=== PATIENT | male | born 1990 | race Caucasian/White ===

== ENCOUNTER → 2016-06-09 | Outpatient (CLI) | payer OTHER ==
[~2016-06-09] MED LIST: ACET-1257 PO; CYCL10TA6 PO; LVQ750 PO; ONDA4TAB10 SL; PRD20 PO; PRVHFAIN INH; TRAM-10 PO
== END | disposition home or self-care (01) ==
LOC: C.LAB 01:00
DX: Z04.8 Encounter for examination and observation for other specified reasons (principal)

== ENCOUNTER 2016-07-18 09:25 | Emergency (ER) | payer BC, OTHER ==
[~2016-07-18] VITALS: Ht 177.8 cm; Wt 100.5 kg
[2016-07-18 09:46] VITALS: TEMP 36.9; Ht 177.8 cm; Wt 100.5 kg
--- NOTE | 2016-07-18 12:01 | DIAGNOSTIC IMAGING REPORT ---
ULTRASOUND OF THE BLADDER CLINICAL HISTORY: Hematuria. COMPARISON STUDY: Abdominal radiograph dated 02/03/2012. TECHNIQUE: Real-time, grayscale, and color flow sonography of the bladder is performed. Images are reviewed in the transverse and longitudinal planes. FINDINGS: The partially distended bladder is normal in appearance. No intraluminal debris is identified. Both ureteral jets were seen. No free fluid is identified in the pelvis. The prostate gland is normal as imaged. IMPRESSION: Unremarkable sonographic assessment of the bladder. Electronically signed by: Jorge Barbosa M.D. 07/18/2016 12:00 PM Dictated Date/Time: 07/18/2016 11:58 AM
--- NOTE | 2016-07-18 12:10 | DIAGNOSTIC IMAGING REPORT ---
TESTICULAR ULTRASOUND CLINICAL HISTORY: Testicular pain status post trauma COMPARISON STUDY: No previous studies for comparison. FINDINGS: The right testis measures 4.8 x 2.2 x 3.4 cm. The left testis measures 4.7 x 2.3 x 2.9 cm. No intratesticular masses are visualized. There is no evidence of testicular torsion. No epididymal abnormalities are evident. IMPRESSION: Normal study Electronically signed by: Valente Chavira M.D. 07/18/2016 12:09 PM Dictated Date/Time: 07/18/2016 12:04 PM
[2016-07-18 12:42] LABS: URINE APPEARANCE CLEAR (CLEAR); URINE BILIRUBIN NEG (NEG); URINE COLOR YELLOW; URINE EPITHELIAL CELL AUTO 0-5 /lpf (0-5); URINE NITRITE NEG (NEG); URINE SPECIFIC GRAVITY 1.002 (1.000-1.030); UROBILINOGEN NEG (NEG)
[2016-07-18 12:44] LABS: MANUAL MICROSCOPIC REQUIRED? NO; REVIEW REQ? NO
--- NOTE | 2016-07-18 14:17 | DIAGNOSTIC IMAGING REPORT ---
RETROGRADE URETHROGRAM CLINICAL HISTORY: Penile trauma. COMPARISON STUDY: None. FLUOROSCOPY TIME: 1 minute. PROCEDURE AND FINDINGS: A retrograde urethrogram was performed by Dr. Slaughter. A small Martini catheter was inserted into the urethral meatus and a small balloon was inflated. 45 cc of Optiray 300 was then injected and fluoroscopic images were obtained in the lateral oblique projection. I fluoroscopic images were obtained. Mobile filling defects within the urethra represent gas. No contrast extravasation is identified. There was no irregularity of the urethral wall. No stricture was identified. Narrowing of the posterior urethra was noted which likely reflects the junction of the anterior and posterior urethra. This is likely within normal limits. The prostatic urethra is suboptimally assessed in this patient. IMPRESSION: 1. No contrast extravasation or urethral stricture identified. 2. Smooth narrowing at the junction of the anterior and posterior urethra which is likely within normal limits. Prostatic urethra suboptimally assessed on this exam. Electronically signed by: Artemio Martinez M.D. 07/18/2016 2:16 PM Dictated Date/Time: 07/18/2016 2:12 PM
[2016-07-18 14:41] VITALS: BP 112/67; PULSE 76; O2SAT 97
--- NOTE | 2016-07-18 17:20 | EMERGENCY ROOM VISIT NOTE ---
History Report prepared by Malia: Franck Rodriguez Under the Supervision of: Dr. Connor Donnelly D.O. First contact with patient: 10:26 Chief Complaint: URINARY SYMPTOMS Stated Complaint: HAVING TROUBLE URINATING/ BLOOD IN URINE Nursing Triage Summary: Triage note: Pt reports 6 days ago while cutting a limb struck his penis. Pt reports since that time he has had difficulty urinating and blood in urine. History of Present Illness The patient is a 25 year old male who presents to the Emergency Room with complaints of acute hematuria that started today. The patient was struck in the groin by a tree limb of approximately 2 inch diameter when he was sawing logs six days ago. He had a small amount of pain and swelling of the penis after the accident which resolved two days ago. He has also had trouble urinating since the incident, as his urine was coming out in dribbles. He is not experiencing pain with urination. Today the patient noticed some blood in his urine which prompted today's visit. The patient denies any previous medical problems. Patient denies headache, change in vision, fevers, chest pain, shortness of breath, nausea, vomiting, diarrhea, and melena. Source of History: patient Onset: today Position: other () Quality: other (hematuria) Timing: other (acute) Associated Symptoms: No SOB, No chest pain, No diarrhea, No fevers, No headache, No melena, No nausea, No vomiting Review of Systems See HPI for pertinent positives & negatives. A total of 10 systems reviewed and were otherwise negative. Past Medical & Surgical Medical Problems: (1) Bronchitis (2) Headache (3) Stomach problems Family History Cancer Social History Smoking Status: Current Every Day Smoker Alcohol Use: none Marital Status: single Occupation Status: unemployed Current/Historical Medications No Active Prescriptions or Reported Meds Allergies Coded Allergies: No Known Allergies (Unverified , 07/18/16) Physical Exam Vital Signs Date Time Temp Pulse Resp B/P Pulse Ox O2 Delivery O2 Flow Rate FiO2 07/18/16 14:41 76 16 112/67 97 07/18/16 13:11 76 16 112/67 97 Room Air 07/18/16 09:46 36.9 86 18 137/79 95 Room Air Physical Exam GENERAL: Sitting up in bed, alert, well appearing, well nourished, no distress, non-toxic EYE EXAM: normal conjunctiva. OROPHARYNX: no exudate, no erythema, lips, buccal mucosa, and tongue normal and mucous membranes are moist NECK: supple, no nuchal rigidity, no adenopathy, non-tender LUNGS: Clear to auscultation. Normal chest wall mechanics HEART: no murmurs, S1 normal and S2 normal ABDOMEN: abdomen soft, non-tender, normo-active bowel sounds, no masses, no rebound or guarding. : Normal external circumcised male genitalia, nontender testicles, no bruising , no blood in the urethral meatus. No masses or hernias appreciated. BACK: Back is symmetrical on inspection and there is no deformity, no midline tenderness, no CVA tenderness. SKIN: no rashes and no bruising UPPER EXTREMITIES: upper extremities are grossly normal. LOWER EXTREMITIES: No pitting edema. NEURO EXAM: Normal sensorium, cranial nerves II-XII grossly intact, normal speech, no gross weakness of arms, no gross weakness of legs. Gross sensation intact. Medical Decision & Procedures ER Provider Diagnostic Interpretation: Radiology results have been interpreted by the radiologist and reviewed by me. ULTRASOUND OF THE BLADDER CLINICAL HISTORY: Hematuria. COMPARISON STUDY: Abdominal radiograph dated 02/03/2012. TECHNIQUE: Real-time, grayscale, and color flow sonography of the bladder is performed. Images are reviewed in the transverse and longitudinal planes. FINDINGS: The partially distended bladder is normal n appearance. No intraluminal debris is identified. Both ureteral jets were seen. No free fluid is identified in the pelvis. The prostate gland is normal as imaged. IMPRESSION: Unremarkable sonographic assessment of the bladder. Electronically signed by: Jorge Barbosa M.D. 07/18/2016 12:00 PM Dictated Date/Time: 07/18/2016 11:58 AM TESTICULAR ULTRASOUND CLINICAL HISTORY: Testicular pain status post trauma COMPARISON STUDY: No previous studies for comparison. FINDINGS: The right testis measures 4.8 x 2.2 x 3.4 cm. The left testis measures 4.7 x 2.3 x 2.9 cm. No intratesticular masses are visualized. There is no evidence of testicular torsion. No epididymal abnormalities are evident. IMPRESSION: Normal study Electronically signed by: Valente Chavira M.D. 07/18/2016 12:09 PM Dictated Date/Time: 07/18/2016 12:04 PM RETROGRADE URETHROGRAM CLINICAL HISTORY: Penile trauma. COMPARISON STUDY: None. FLUOROSCOPY TIME: 1 minute. PROCEDURE AND FINDINGS: A retrograde urethrogram was performed by Dr. Slaughter. A small Martini catheter was inserted into the urethral meatus and a small balloon was inflated. 45 cc of Optiray 300 was then injected and fluoroscopic images were obtained in the lateral oblique projection. I fluoroscopic images were obtained. Mobile filling defects within the urethra represent gas. No contrast extravasation is identified. There was no irregularity of the urethral wall. No stricture was identified. Narrowing of the posterior urethra was noted which likely reflects the junction of the anterior and posterior urethra. This is likely within normal limits. The prostatic urethra is suboptimally assessed in this patient. IMPRESSION: 1. No contrast extravasation or urethral stricture identified. 2. Smooth narrowing at the junction of the anterior and posterior urethra which is likely within normal limits. Prostatic urethra suboptimally assessed on this exam. Electronically signed by: Artemio Martinez M.D. 07/18/2016 2:16 PM Dictated Date/Time: 07/18/2016 2:12 PM Laboratory Results Test 07/18/16 12:20 Urine Color YELLOW Urine Appearance CLEAR (CLEAR) Urine pH 5.0 (4.5-7.5) Urine Specific [place] 1.002 (1.000-1.030) Urine Protein NEG (NEG) Urine Glucose (UA) NEG (NEG) Urine Ketones NEG (NEG) Urine Occult Blood NEG (NEG) Urine Nitrite NEG (NEG) Urine Bilirubin NEG (NEG) Urine Urobilinogen NEG (NEG) Urine Leukocyte Esterase NEG (NEG) Urine WBC (Auto) 1-5 /hpf (0-5) Urine RBC (Auto) 0-4 /hpf (0-4) Urine Hyaline Casts (Auto) 0 /lpf (0-5) Urine Epithelial Cells (Auto) 0-5 /lpf (0-5) Urine Bacteria (Auto) NEG (NEG) Laboratory results per my review. ED Course ED COURSE: Vital signs were reviewed and were normal. The patients medical record was reviewed The above diagnostic studies were performed and reviewed. ED treatments and interventions as stated above. 1028: The patient was evaluated in room A12a. A complete history and physical examination was performed. 1049: Discussed the case with Dr. Slaughter's LINE REPAIRER (Urology). Dr. Slaughter will be in to see the patient. 1111: Spoke with Dr. Martinez, Radiologist, who will perform a fluoro if Urology injects them. 1115: Dr. Slaughter agreed with performing a RUG. 1350: The PUG is being done now. 1400: The patient asked for a note for court. 1420: Dr. Slaughter finished the PUG. He would like the patient to follow up in three weeks. 1425: Upon reevaluation, the patient is ready for discharge.I discussed my findings with the patient and he understands and agrees with the treatment plan. Based on the patients age, coexisting illnesses, exam and lab findings the decision to treat as an outpatient was made. The patient remained stable while under my care. The patient appeared well at the time of discharge. Medical Decision Differential diagnoses includes but is not limited to gastritis, peptic ulcer disease, GERD, gallbladder disease, pancreatitis, small bowel obstruction, acute coronary syndrome, pericarditis, ischemic bowel, irritable bowel disease, irritable bowel syndrome, appendicitis, diverticulitis, malignancy, hernia, urinary tract infection, torsion, , perforation, trauma, infectious. Patient is a 25-year-old male who was hit in the penis 5 days ago. Patient has been having pain since then. No obvious deformity or signs of trauma. Ultrasound of the bladder and testicles were unremarkable. A rug was performed by urology and was negative as well. UA was negative. Patient was evaluated by urology at bedside and agreed with his current treatment plan. He was discharged to follow-up with them in 2-3 weeks. Again his abdomen is completely benign and he denies any trauma consequently I did not image his belly. His story is not consistent with ureteral tear but the rug was performed for completeness. Post void residual was 40 consequently he is not retaining. I felt it was reasonable to discharge him and have him follow-up with urology as an outpatient. Discussed with Pt concerning signs and symptoms to watch out for. Pt was instructed to follow up with their PCP and discussed with the patient their option to return to the ED at anytime for persistent or worsening symptoms. The appropriate anticipatory guidance and out-patient management, including indications for return to the emergency department, were explained at length to the patient and understood. Impression Primary Impression: Penile trauma Additional Impression: Hematuria Scribe Attestation The scribe's documentation has been prepared under my direction and personally reviewed by me in its entirety. I confirm that the note above accurately reflects all work, treatment, procedures, and medical decision making performed by me. Departure Information Dispostion Home / Self-Care Prescriptions No Active Prescriptions or Reported Meds Referrals No Doctor, Assigned (PCP) Forms HOME CARE DOCUMENTATION FORM, IMPORTANT VISIT INFORMATION Patient Instructions ED Hematuria, [facility] Additional Instructions Please follow up with your primary care doctor with in the next 24 hours. Any worsening of your symptoms, please return to the ED immediately. This includes persistent blood in urine, worsening pain, inability urinate, or worsening lower abdominal pain. Please follow up with urology within the next 2-3 weeks. Problem Qualifiers Primary Impression: Penile trauma Encounter type: initial encounter Qualified Codes: S39.94XA - Unspecified injury of external genitals, initial encounter
--- NOTE | 2016-07-18 22:26 | GENITOURINARY CONSULTATION ---
DATE OF CONSULTATION: 07/18/2016 EMERGENCY ROOM CONSULT REASON FOR THE CONSULT: Gross hematuria and history of urethral trauma. HISTORY OF PRESENTATION: The patient is a 25-year-old male who 6 days ago was hit across his thighs including the penis by a tree limb. At that time, he felt some pain but did not stop working and he continued to work for the next 5 days but did have some pain in his penis that has gotten less and less. There is a little bit of redness and swelling but not significant redness. He denies any abdominal or flank trauma. Initially, he was able to void and there has been no blood, but he did notice some decrease in the flow and he has some hesitancy. Today, he noticed some pink in the toilet when he voided and came to the Emergency Room because of this. Again, the patient is 25 years old and in relatively good health, has no known drug allergies. He denies any trauma to his abdomen or pain in his abdomen or his flank. He denies any serious penile pain at this point or significant discoloration or swelling. He is relatively otherwise healthy 25-year-old male. A bladder scan was done in the Emergency Room and he had less than 50 mL in his bladder after voiding. Of note, he said he fell on his back and had blood in his urine previously in October of 2015. He also had testicular sonogram during this visit that was completely normal. PHYSICAL EXAMINATION: GENERAL: The patient does not appear to be in any distress. HEENT: Unremarkable. LUNGS: Clear. ABDOMEN: He had no flank pain to percussion. No abdominal pain or suprapubic discomfort. His abdomen was soft, nontender. GENITOURINARY: He had a normal appearing circumcised male phallus. There was no discoloration. There was mild thickening of the mid penile urethra. Rectal exam was done and there did not appear to be high-riding prostate, although the prostate was quite small. Again, testes were normal without any tenderness or mass. No epididymal swelling. EXTREMITIES: Unremarkable. NEUROLOGIC: He is alert and oriented without any focal sensory deficit. A retrograde urethrogram was done in conjunction with Dr. Martinez. I placed the catheter 1 cm into the urethra, 14-[place] catheter, inflated it with 2 mL of saline just inside the tip of the urethra and injected contrast. Dr. Martinez and I both agree that we did not see any extravasation. There was not any obvious trauma to the urethra. It appeared uniform and symmetric and normal and did not appear constricted at any point down to the prostatic urethra. At the end of the procedure, the patient went back to the Emergency Room and discussed the options with his father including placing a Martini catheter, but given that patient has been voiding, I do not think this is warranted. We did discuss the fact that if he has hematuria from other causes, that a CAT scan and a cystoscopy would be in order. I suggested that he return in several weeks, at which point we could get Uroflow and also do a urinalysis. If in the interim he has problems, he is to return. I felt that placing a Martini catheter would not be of great benefit as it does not appear that he has extravasation. He probably has some damage to the spongiosum and he may get a stricture but whatever he gets, I do not think will be affected by the catheter and I am not sure that a 25-year-old is going to be more comfortable with a Martini catheter in place. If he develops gross hematuria, further workups would be warranted but there is no evidence of trauma to his flank or his abdomen. They are both completely nontender and he has no flank or abdominal pain. I gave the patient and father my card and asked them to follow up in 3 weeks or sooner if there are problems.
== END 2016-07-18 14:43 | disposition home or self-care (01) ==
LOC: C.EDB 09:26 → C.EDA 14:43
DX: S30.21XA Contusion of penis, initial encounter (principal); W22.8XXA Striking against or struck by other objects, initial encounter; R31.9 Hematuria, unspecified; F17.200 Nicotine dependence, unspecified, uncomplicated; Z80.9 Family history of malignant neoplasm, unspecified

== ENCOUNTER 2016-08-21 09:43 | Emergency (ER) | payer BC ==
[~2016-08-21] VITALS: Ht 177.8 cm; Wt 102.2 kg
[2016-08-21 10:00] VITALS: TEMP 36.8; Ht 177.8 cm; Wt 102.2 kg
[2016-08-21] MEDS ORDERED: CYCL10TA6 PO (10:17)
[2016-08-21] MEDS ORDERED: ACET-1257 PO (10:17)
[2016-08-21] MEDS ORDERED: ACETAMINOPHEN 500 MG TAB PO STA (10:35)
--- NOTE | 2016-08-21 11:06 | DIAGNOSTIC IMAGING REPORT ---
HEAD CT NONCONTRAST CT DOSE: 614.27 mGy.cm HISTORY: Head injury. Headache. TECHNIQUE: Multiaxial CT images of the head were performed without the use of intravenous contrast. Automated exposure control was utilized for this study. Comparison: None. Findings: The paranasal sinuses and mastoid air cells are clear. The calvarium and skull base are intact. The ventricles and sulci are within normal limits. There is no mass, hematoma, midline shift, or acute infarct. Impression: No acute intracranial abnormality. Electronically signed by: Bret Khan M.D. 08/21/2016 11:03 AM Dictated Date/Time: 08/21/2016 11:00 AM
[2016-08-21] MEDS ORDERED: TRAM-10 PO (11:32)
[2016-08-21] MEDS ORDERED: ONDA4TAB10 SL (11:32)
[2016-08-21 11:40] VITALS: BP 117/60; PULSE 84; O2SAT 96
--- NOTE | 2016-08-21 16:19 | EMERGENCY ROOM VISIT NOTE ---
History First contact with patient: 10:22 Chief Complaint: HEAD INJURY (MINOR) Stated Complaint: BRAMBILA, VISION BLURRY, TIRED/FATIGUED History of Present Illness The patient is a 25 year old male who presents to the Emergency Room with complaints of a head injury while under a metal table last night. As he was attempting to crawl out from under the table, he stood up and hit his head. There was a loss of consciousness for approximately 15 seconds. The patient does report mildly worsening pain. He denies any nausea, blurred vision, discoordination, epistaxis, blurred vision or light sensitivity. He also denies any significant nausea. He currently rates his headache a 2 out of 10. He denies any pain extending into the neck or back. Review of Systems 10 system review was performed and was negative except for pertinent positives and negatives as indicated in history of present illness Past Medical/Surgical History Medical Problems: (1) Bronchitis (2) Headache (3) Stomach problems Family History Cancer FH: hypertension Social History Smoking Status: Current Every Day Smoker Alcohol Use: none Marital Status: single Occupation Status: unemployed Current/Historical Medications Scheduled Acetaminophen (Tylenol Extra Strength), 2 TABS PO UD Ondasetron Odt (Zofran Odt), 4 MG SL Q6H Scheduled PRN Cyclobenzaprine Hcl (Flexeril), 10 MG PO TID PRN for Muscle Spasms Tramadol (Ultram), 1-2 TAB PO Q4H PRN for Pain Allergies Coded Allergies: No Known Allergies (Unverified , 08/21/16) Physical Exam Vital Signs Date Time Temp Pulse Resp B/P Pulse Ox O2 Delivery O2 Flow Rate FiO2 08/21/16 11:40 84 117/60 96 08/21/16 10:00 36.8 82 20 130/81 98 Room Air Pain Rating (0-10): 2.0 Physical Exam CONSTITUTIONAL: Healthy and well nourished. Alert and oriented X 3 with positive affect. GCS 15. The patient does not appear in any acute distress. HEENT: Normocephalic, atraumatic. Pupils equal, round and reactive. No scalp lacerations or hematoma. No epistaxis, subconjunctival hemorrhage, hemotympanum , raccoon's eyes or Good sign. NECK: Full active range of motion without discomfort. RESPIRATORY: Clear to auscultation bilaterally with no wheezing, crackles, rhonchi or stridor. CARDIOVASCULAR: Regular rate and rhythm with no murmurs, rubs or gallops. MUSCULOSKELETAL: Full range of motion of all joints without discomfort. INTEGUMENTARY: No rash or other significant dermatologic conditions noted. NEUROLOGIC: Cranial nerves II-XII grossly intact. No focal neurologic deficits noted. Normal finger to nose test. Negative pronator drift. No ataxia with ambulation. Medical Decision & Procedures ER Provider Diagnostic Interpretation: My interpretation of a noncontrast head CT does not show any acute fracture or intracranial bleed. Radiologist report is as follows: HEAD CT NONCONTRAST CT DOSE: 614.27 mGy.cm HISTORY: Head injury. Headache. TECHNIQUE: Multiaxial CT images of the head were performed without the use of intravenous contrast. Automated exposure control was utilized for this study. Comparison: None. Findings: The paranasal sinuses and mastoid air cells are clear. The calvarium and skull base are intact. The ventricles and sulci are within normal limits. There is no mass, hematoma, midline shift, or acute infarct. Impression: No acute intracranial abnormality. ED Course Patient history and physical exam were performed. Nurse's notes were reviewed. Vital signs were reviewed and normal. The patient refused any analgesics while in the emergency department. Noncontrast CT of the head was normal. The patient was advised that his symptoms are consistent with a concussion. A concussion handout was provided. The patient was instructed to limit activities until symptoms completely resolved. He may alternate ibuprofen and Tylenol as needed for pain. The patient refused any stronger analgesics or antiemetics, was happy with plan of care, and rated his headache a 4 out of 10 at the time of discharge. Impression Primary Impression: Concussion Departure Information Dispostion Home / Self-Care Condition GOOD Prescriptions Ondasetron Odt (ZOFRAN ODT) 4 Mg Tab 4 MG SL Q6H for Nausea, #10 TAB Prov: Kenny Canela PA 08/21/16 Tramadol (Ultram) 50 Mg Tab 1-2 TAB PO Q4H Y for Pain, #30 TAB For Initial Treatment Prov: Kenny Canela PA 08/21/16 Forms HOME CARE DOCUMENTATION FORM, IMPORTANT VISIT INFORMATION Patient Instructions Concussion, [facility] Additional Instructions Read concussion handout. Rest and avoid strenuous activities until all symptoms completely resolved. Ibuprofen 800 mg and/or Tylenol 1000 mg every 8 hours. You may also alternate these medications for more effective pain relief: Ibuprofen --4 HRS--> Tylenol --4 HRS--> ibuprofen --4 HRS--> Tylenol .... Ultram if needed for worse pain. Zofran ODT if needed for nausea. Follow-up with your family doctor as needed for further concussion management. Return to the emergency department for any significantly worsening conditions. Problem Qualifiers Primary Impression: Concussion Encounter type: initial encounter Loss of consciousness presence/duration: with LOC of 30 min or less Qualified Codes: S06.0X1A - Concussion with loss of consciousness of 30 minutes or less, initial encounter
== END 2016-08-21 11:41 | disposition home or self-care (01) ==
LOC: C.EDB 09:45
DX: S06.0X9A Concussion with loss of consciousness of unspecified duration, initial encounter (principal); S09.90XA Unspecified injury of head, initial encounter; W22.8XXA Striking against or struck by other objects, initial encounter; F17.200 Nicotine dependence, unspecified, uncomplicated; Z87.19 Personal history of other diseases of the digestive system; Z80.9 Family history of malignant neoplasm, unspecified; Z82.49 Family history of ischemic heart disease and other diseases of the circulatory system

== ENCOUNTER 2017-01-29 09:00 | Inpatient (IN) | payer BC ==
[~2017-01-29] VITALS: Ht 177.8 cm; Wt 93.9 kg
[2017-01-29] VITALS (7 sets, daily range): BP systolic 121–156; BP diastolic 65–81; PULSE 91–103; TEMP 36.2–37.2; O2SAT 94–98; Ht 177.8 cm; Wt 93.9 kg
[~2017-01-29 09:00] MED LIST changes: -LVQ750 PO; -PRD20 PO; -PRVHFAIN INH
[2017-01-29] MEDS ORDERED: SODIUM CHLORIDE 0.9% 1000ML 1,000 ML IV STA (09:19)
[2017-01-29] MEDS ORDERED: ACETAMINOPHEN 500 MG TAB PO STA (09:19)
--- NOTE | 2017-01-29 09:25 | EMERGENCY ROOM VISIT NOTE ---
History Report prepared by Malia: Sosa Monge Under the Supervision of: Dr. Jorge Cisneros M.D. First contact with patient: 09:17 Chief Complaint: FLU LIKE SX Stated Complaint: COUGHING,HEADACHE,TROUBLE BREATHING,SWEATY History of Present Illness The patient is a 26 year old male who presents to the Emergency Room with complaints of constant flu-like symptoms beginning 3 days ago. The patient reports having nausea, vomiting, a headache, cough, diarrhea, and a fever. The patient reports that he has had dark green mucous and blood in his productive cough. He states that he has been congested and that he woke up last night feeling short of breath, and that he was slightly delirious. He denies being in contact with anyone who has been sick with these symptoms. The patient denies a history of asthma and pneumonia. The ambulance was summoned to his house this morning as he was hard to arouse. He did wake up though and was alert and oriented for the paramedics. He agreed to come to the hospital for evaluation rather than undergo ambulance transport to the ED. Source of History: patient Onset: 3 days ago Position: other (global) Quality: other (flu-like symptoms ) Timing: constant Associated Symptoms: + fevers, + headache, + cough, + SOB, + nausea, + vomiting, + diarrhea Review of Systems See HPI for pertinent positives & negatives. A total of 10 systems reviewed and were otherwise negative. Past Medical & Surgical Medical Problems: (1) Bronchitis (2) fever cough possibel pna (3) Headache (4) Stomach problems Family History Cancer FH: hypertension Social History Smoking Status: Former Smoker Alcohol Use: none Marital Status: single Occupation Status: unemployed Current/Historical Medications No Active Prescriptions or Reported Meds Allergies Coded Allergies: No Known Allergies (Unverified , 08/21/16) Physical Exam Vital Signs Date Time Temp Pulse Resp B/P (MAP) Pulse Ox O2 Delivery O2 Flow Rate FiO2 01/29/17 12:07 117 01/29/17 11:25 37.3 116 20 110/70 92 Nasal Cannula 2.0 01/29/17 10:17 90 Nasal Cannula 2.0 01/29/17 10:17 127 01/29/17 10:13 37.9 127 20 124/72 87 Room Air 01/29/17 09:05 37.1 117 20 123/79 Room Air Physical Exam GENERAL: Patient is in no acute distress. HEENT: No acute trauma, normocephalic atraumatic, mucous membranes moist, moderate nasal congestion, no scleral icterus. No throat erythema or exudate. NECK: No stridor, no adenopathy, no meningismus, trachea is midline. LUNGS: Moist cough noted. Scattered wheezing, breath sounds are equal. No respiratory distress. HEART: Tachycardic. No murmurs. Normal rhythm. ABDOMEN: Soft, nontender, bowel sounds positive, no hernias, no peritonitis. EXTREMITIES: No cyanosis or edema, full range of motion of all the joints without pain or difficulty, no signs for acute trauma. NEUROLOGIC: Oriented x 3, no acute motor or sensory deficits, no focal weakness. SKIN: No rash, no jaundice, no diaphoresis. Medical Decision & Procedures ER Provider Diagnostic Interpretation: X-ray results as stated below per interpretation by me and the radiologist: CHEST ONE VIEW PORTABLE CLINICAL HISTORY: Respiratory distress. Dyspnea. COMPARISON STUDY: Chest radiograph February 03, 2012. FINDINGS: Lung volumes are at the lower limits of normal. There is no consolidation to suggest pneumonia. No pneumothorax or pleural effusion is present. Cardiomediastinal silhouette is normal. Pulmonary vascularity is normal. IMPRESSION: No acute cardiopulmonary findings. Electronically signed by: Artemio Martinez M.D. 01/29/2017 9:47 AM Dictated Date/Time: 01/29/2017 9:46 AM Laboratory Results 01/29/17 09:43 Red Blood Count 4.56, Mean Corpuscular Volume 91.0, Mean Corpuscular Hemoglobin 30.7, Mean Corpuscular Hemoglobin Concent 33.7, Mean Platelet Volume 9.0, Neutrophils (%) (Auto) 85.3, Lymphocytes (%) (Auto) 5.8, Monocytes (%) (Auto) 7.9, Eosinophils (%) (Auto) 0.7, Basophils (%) (Auto) 0.1, Neutrophils # (Auto) 11.72, Lymphocytes # (Auto) 0.79, Monocytes # (Auto) 1.08, Eosinophils # (Auto) 0.10, Basophils # (Auto) 0.01 01/29/17 09:43 Test 01/29/17 09:35 01/29/17 09:43 01/29/17 10:29 01/29/17 11:55 Influenza Type A Antigen Neg for Influ A (NEG) Influenza Type B Antigen Neg for Influ B (NEG) White Blood Count 13.73 K/uL (4.8-10.8) Red Blood Count 4.56 M/uL (4.7-6.1) Hemoglobin 14.0 g/dL (14.0-18.0) Hematocrit 41.5 % (42-52) Mean Corpuscular Volume 91.0 fL (80-100) Mean Corpuscular Hemoglobin 30.7 pg (25-34) Mean Corpuscular Hemoglobin Concent 33.7 g/dl (32-36) Platelet Count 260 K/uL (130-400) Mean Platelet Volume 9.0 fL (7.4-10.4) Neutrophils (%) (Auto) 85.3 % Lymphocytes (%) (Auto) 5.8 % Monocytes (%) (Auto) 7.9 % Eosinophils (%) (Auto) 0.7 % Basophils (%) (Auto) 0.1 % Neutrophils # (Auto) 11.72 K/uL (1.4-6.5) Lymphocytes # (Auto) 0.79 K/uL (1.2-3.4) Monocytes # (Auto) 1.08 K/uL (0.11-0.59) Eosinophils # (Auto) 0.10 K/uL (0-0.5) Basophils # (Auto) 0.01 K/uL (0-0.2) RDW Standard Deviation 40.0 fL (36.4-46.3) RDW Coefficient of Variation 12.0 % (11.5-14.5) Immature Granulocyte % (Auto) 0.2 % Immature Granulocyte # (Auto) 0.03 K/uL (0.00-0.02) Anion Gap 3.0 mmol/L (3-11) Est Creatinine Clear Calc Drug Dose 150.5 ml/min Estimated GFR () 138.7 Estimated GFR (Non- 119.7 BUN/Creatinine Ratio 7.1 (10-20) Calcium Level 8.9 mg/dl (8.5-10.1) Bedside Lactic Acid Venous 1.17 mmol/L (0.90-1.70) Creatine Kinase MB Ratio (0-3.0) Test 01/29/17 12:24 Laboratory results reviewed by me. Medications Administered Medications (Trade) Dose Ordered Sig/Tj Route Start Time Stop Time Status Last Admin Dose Admin Sodium Chloride 1,000 ml @ 999 mls/hr Q1H1M STAT IV 01/29/17 09:19 01/29/17 10:19 DC 01/29/17 09:38 999 MLS/HR Acetaminophen (Tylenol Tab) 1,000 mg NOW STAT PO 01/29/17 09:19 01/29/17 09:24 DC 01/29/17 09:38 1,000 MG Albuterol (Ventolin Hfa Inhaler) 3 puffs NOW ONCE INH 01/29/17 09:30 01/29/17 09:31 DC 01/29/17 09:38 3 PUFFS Ibuprofen (Motrin Tab) 600 mg NOW STAT PO 01/29/17 10:14 01/29/17 10:15 DC 01/29/17 10:20 600 MG Methylprednisolone Sodium Succinate (Solu-Medrol IV) 80 mg NOW STAT IV 01/29/17 10:23 01/29/17 10:24 DC 01/29/17 10:33 80 MG Ceftriaxone Sodium (Rocephin Inj) 1 gm NOW STAT IV 01/29/17 10:23 01/29/17 10:24 DC 01/29/17 10:33 1 GM ED Course 0912: The patient was evaluated in room B4. A complete history and physical exam was performed. 0919: Ordered Tylenol Tab 1,000 mg PO, Sodium Chloride 1,000 ml @ 999 mls/hr IV. 0930: Ordered Albuterol 3 puffs INH. 1014: Ordered Ibuprofen 600 mg PO. 1023: Ordered Rocephin Inj 1 gm IV, Methylprednisolone Sodium Succinate 80 mg IV. 1108: I went over the test results with the patient and his family. 1120: Discussed the patient's case with Dr. Olivera. The patient will be evaluated for further management. 1130: Upon reexamination the patient is resting. I discussed results and treatment plan with the patient. He verbalizes agreement and understanding. The patient will be evaluated for further management. Medical Decision The patient is a 26 year old male who presents to the ED with complaints of flu- like symptoms. Differential diagnoses considered include bronchitis, pneumonia , influenza, sinusitis, dehydration, viral illness, pneumothorax, and heart failure. There is a mild leukocytosis at 13,000, this could be consistent with infection. No anemia. No significant electrolyte abnormality or kidney failure. Lactic acid level is not elevated making sepsis less likely. Chest film does not show CHF, pneumothorax or pneumonia. Blood cultures are pending. Influenza testing was negative. The patient is hypoxic by our testing. He did require nasal cannula O2 supplementation. He was given albuterol via MDI. He received oral Motrin and oral Tylenol for fever. He received IV saline, IV Solu-Medrol and IV ceftriaxone. The patient appears to have an acute bronchitis, possibly an early pneumonia not yet seen on chest film. This has caused his fever, cough and hypoxia. I do think a hospital stay is required. I spoke to the patient and case management. The on-call hospitalist was consulted. Medication Reconcilliation Current Medication List: was personally reviewed by me Blood Pressure Screening Patient's blood pressure: Normal blood pressure Consults Time Called: 1100 Consulting Physician: Dr. Carlie Cornejo Returned Call: 1120 Discussed the patient's case. The patient will be evaluated for further management. Impression Primary Impression: Hypoxia Additional Impressions: Fever Acute bronchiolitis Scribe Attestation The scribe's documentation has been prepared under my direction and personally reviewed by me in its entirety. I confirm that the note above accurately reflects all work, treatment, procedures, and medical decision making performed by me. Departure Information Dispostion Being Evaluated By Hospitalist Prescriptions No Active Prescriptions or Reported Meds Referrals Deanna Mohan C.R.N.P (PCP) Patient Instructions My [facility] Problem Qualifiers
[2017-01-29] MEDS ORDERED: ALBUTEROL HFA 8 GM INHALER INH ONE (09:30)
--- NOTE | 2017-01-29 09:48 | DIAGNOSTIC IMAGING REPORT ---
CHEST ONE VIEW PORTABLE CLINICAL HISTORY: Respiratory distress. Dyspnea. COMPARISON STUDY: Chest radiograph February 03, 2012. FINDINGS: Lung volumes are at the lower limits of normal. There is no consolidation to suggest pneumonia. No pneumothorax or pleural effusion is present. Cardiomediastinal silhouette is normal. Pulmonary vascularity is normal. IMPRESSION: No acute cardiopulmonary findings. Electronically signed by: Artemio Martinez M.D. 01/29/2017 9:47 AM Dictated Date/Time: 01/29/2017 9:46 AM
[2017-01-29 10:04] LABS: BASO % 0.1 %; BASO ABS # 0.01 K/uL (0-0.2); COMPLETE YES; EOS % 0.7 %; HEMATOCRIT 41.5 % (42-52); IG% 0.2 %; LYMPH % 5.8 %; LYMPH ABS # 0.79 K/uL (1.2-3.4); MEAN CORPUSCULAR HEMOGLOBIN 30.7 pg (25-34); MEAN CORPUSCULAR HGB CONC 33.7 g/dl (32-36); MONO % 7.9 %; NEUT % 85.3 %; PLATELET COUNT 260 K/uL (130-400); RED BLOOD COUNT 4.56 M/uL (4.7-6.1); WHITE BLOOD COUNT 13.73 K/uL (4.8-10.8)
[2017-01-29] MEDS ORDERED: IBUPROFEN 600 MG TAB PO STA (10:14)
[2017-01-29 10:21] LABS: BUN/CREATININE RATIO 7.1 (10-20); CALCIUM 8.9 mg/dl (8.5-10.1); CREATININE 0.89 mg/dl (0.60-1.40); POTASSIUM 3.5 mmol/L (3.5-5.1)
[2017-01-29] MEDS ORDERED: METHYLPREDNISOLONE 125 MG VIAL IV STA (10:23)
[2017-01-29] MEDS ORDERED: CEFTRIAXONE SOD INJ 1 GM ADDVIAL IV STA (10:23)
[2017-01-29] MEDS ORDERED: ONDANSETRON INJ 2 MG/ML 2 ML VIAL IV PRN (12:00)
[2017-01-29] MEDS ORDERED: ZOLPIDEM TARTRATE 5 MG TAB PO PRN (12:00)
[2017-01-29] MEDS ORDERED: ALUMINUM/MAGNESIUM/SIMETH (MAALOX MAX) 30 ML UDC PO PRN (12:00)
[2017-01-29] MEDS ORDERED: POLYETHYLENE (MIRALAX) 17 GM PACK PO PRN (12:00)
[2017-01-29] MEDS ORDERED: MAGNESIUM HYDROXIDE SUSP 30 ML UDC PO PRN (12:00)
--- NOTE | 2017-01-29 12:09 | History and Physical ---
History & Physical Date of Service Jan 29, 2017. History & Physical [id number], fever cough possible clinical pna
[2017-01-29] MEDS ORDERED: OPTIRAY 320 IV PRN (12:15)
[2017-01-29] MEDS ORDERED: ZITHROMAX PHARMACY CONSULT IN PROGRESS PRN (12:30)
[2017-01-29] MEDS ORDERED: AZITHROMYCIN IV 500 MG in DEXTROSE 5% 250ML 250 ML IV SCH (12:30)
[2017-01-29] MEDS ORDERED: ROCEPHIN PHARMACY CONSULT IN PROGRESS PRN (12:30)
--- NOTE | 2017-01-29 13:42 | DIAGNOSTIC IMAGING REPORT ---
(CHEST FOR PE) ANGIO WITH CT DOSE: 615.97 mGycm HISTORY: Chest pain. Dyspnea. 01/29/17 0943 CREAK 0.89 TECHNIQUE: Multiaxial CT images of the chest were performed following the intravenous administration of contrast to evaluate the pulmonary arteries. Maximal intensity projection images were also obtained. A dose lowering technique was utilized adhering to the principles of ALARA. COMPARISON STUDY: None. FINDINGS: Thoracic aorta is unremarkable. Pulmonary vasculature enhances appropriately. Mild bibasilar dependent atelectatic change. Focal consolidative infiltrate measuring 1.8 cm anterior aspect right upper lobe. Additional peripheral infiltrate superior segment right lower lobe measuring 1.7 cm. Slight interstitial prominence of the pulmonary apices. Several small hilar nodes. IMPRESSION: Scattered parenchymal infiltrative change. Study is negative for pulmonary embolus. Mild bibasilar atelectatic change. The above report was generated using voice recognition software. It may contain grammatical, syntax or spelling errors. Electronically signed by: Campbell Sommer M.D. 01/29/2017 1:41 PM Dictated Date/Time: 01/29/2017 1:34 PM
--- NOTE | 2017-01-29 14:12 | HISTORY & PHYSICAL EXAMINATION ---
DATE OF ADMISSION: 01/29/2017 This is level 3 inpatient admission, 35 minutes. CHIEF COMPLAINT: Cough, fever, difficulty breathing and sweating. HISTORY OF PRESENT ILLNESS: The patient is a 26-year-old white male with history of bronchitis, headache, remote history of smoking, comes to the hospital Emergency Department because of the above chief complaint. He reported about flu-like symptoms 3 days ago, associated with nose congestion , runny nose and some nauseation/ vomiting and diarrhea for 2-3 days. He also reported has headache, cough and fevers. He reported has fever at home. The cough has been getting worse, associated with dark green mucus and some blood streak in the sputum. He did not take the temperature. No more diarrhea. No more nausea, vomiting but then the cough is not getting better. He did report he woke up last night feeling shortness of breath. Denied any sick contact. Denied any history of asthma or pneumonia but like I mentioned, he did have smoking. In the Emergency Room, he was found to have temperature 37.9, tachycardia highest was 127. He was having mild hypoxia at 87% in room air and 92% on 2 liters for now. When I interviewed with him, he is awake, alert, and orientated, conversational, follows all commands. He confirmed me the above information. Denied chest pain, palpitations, lower extremity swellings. Denied cough up blood now. Denied nausea, vomiting. No abdominal pain. No more diarrhea or constipation. Denied dysuria, urgency and frequencies. Denied skin rashes. Denied facial droop, slurry speeches or local weakness. PAST MEDICAL HISTORY: Like I mentioned in the above includes bronchitis, headache and possible GERD. FAMILY HISTORY: Includes hypertension. SOCIAL HISTORY: Smoking, quit about 6 months ago. Denied alcohol abuse disorder, denied illicit drug abuse. There is no any active medicine currently. ALLERGIES: No known drug allergies. PHYSICAL EXAMINATION: VITAL SIGNS: Temperature is 37.6, pulse 116, respiratory rate 20, blood pressure 110/70, pulse ox was 92% on 2 liters. GENERAL: The patient is a white male, mild obesity, in no acute distress. HEAD: Normocephalic. EYES: Pupils equal, round, respond to the light. EARS: Ear was normal. NOSE: Normal. Mild to moderate nasal congestion. SKIN: There was no icterus. MOUTH: Tonsils have no enlargement, pharyngeal area has no erythema. NECK: Supple. Thyroid no enlargement. Trachea midline. HEART: Regular rhythm, mild tachycardic. No murmurs. No gallop. LUNGS: Decreased breathing sounds. There was end-expiration wheezing. No crackles. ABDOMEN: Soft, nontender. Bowel sound was positive. Bilateral CVA was nontender. GENITOURINARY AND RECTAL: Deferred. EXTREMITIES: Bilateral lower extremity, no swelling. Homans sign was negative. Calf was nontender. NEUROLOGICAL EVALUATION: Cranial nerves II-XII was intact. There was no local deficit. LABORATORY STUDIES: WBC 13, hemoglobin 14, platelet 260. Sodium 137, potassium 3.5, chloride 103, bicarb 31, BUN 6, creatinine 0.8, blood glucose 153. Chest x-ray was done in the Emergency Room, there was no acute cardiopulmonary finding. EKG was not done. ASSESSMENT AND PLAN: A 26-year-old white male with the conditions seen below. Fever, cough, sputum associated with nausea, vomiting and diarrhea. Possible virus infection with virus gastroenteritis and also has viral bronchitis. However, other differential diagnosis includes pneumonia, bronchitis, pulmonary embolization, virus carditis I would treat him for possible bronchitis or clinical pneumonia because of history of bronchitis and smoking. In addition to antibiotics, I will give prednisone oral p.o. At the same time, I want to check a chest CT to rule out PE, check echocardiogram to check cardiac functions because of tachycardia. Check cardiac enzyme troponin x1 set. Check a EKG as well. At the same time, I will check ESR, CRP, TSH. We will check UA. Discussed with patient and family at the bedside about the care plan. I answered all their questions. The patient is full code. DVT prophylaxis and GI prophylaxis is covered. MTDD
[2017-01-29 14:34] LABS: PROTHROMBIN TIME (PATIENT) 10.7 SECONDS (9.0-12.0)
[2017-01-29 14:52] LABS: C-REACTIVE PROTEIN 5.48 mg/dl (0-0.29)
--- NOTE | 2017-01-29 15:13 | ECHOCARDIOGRAM REPORT ---
*NOTICE TO RECEIVING DEMOCRAT AGENCY This information is strictly Confidential and protected under [place] law. [place] law prohibits you from making any further disclosure of this information unless further disclosure is expressly permitted by the written consent of the person to whom it pertains or is authorized by law. A general authorization for the release of medical or other information is not sufficient for this purpose. Hospital accepts no responsibility if the information is made available to any other person, INCLUDING THE PATIENT. Interpretation Summary * Name: COLUMBA JAMA Study Date: 01/29/2017 01:36 PM BP: 118/81 mmHg * Patient Location: C.EDB HR: 95 * : 1990 (M/d/yyyy) Gender: Male Height: 71 in * Age: 26 yrs Ethnicity: CA Weight: 216 lb * Ordering Physician: David Olivera * Referring Physician: Self, Referred * Performed By: Dayanna Naranjo RCS * * Reason For Study: TACHY * BSA: 2.2 m2 * No significant valvular abnormalities. * Normal bi-ventricular function * All chambers of normal size and function * This was essentially a normal study. Procedure Details * A complete two-dimensional transthoracic echocardiogram was performed (2D, M-mode, Doppler and color flow Doppler). Left Ventricle * The left ventricle is normal in size. * There is normal left ventricular wall thickness. * Left ventricular systolic function is normal. * Ejection Fraction = 55-60%. * The left ventricular wall motion is normal. Right Ventricle * The right ventricle is normal in size and function. Atria * The left atrial size is normal. * Right atrial size is normal. * No ASD detected; PFO is not assessed. Mitral Valve * The mitral valve is normal. * There is no mitral valve stenosis. * There is no mitral regurgitation noted. Tricuspid Valve * The tricuspid valve is not well visualized, but is grossly normal. * There is no tricuspid stenosis. * No tricuspid regurgitation. Aortic Valve * The aortic valve is trileaflet. * The aortic valve opens well. * Aortic stenosis is absent. * No aortic regurgitation is present. Pulmonic Valve * The pulmonary valve is inadequately visualized, but the Doppler data is adequate for interpretation. * There is no pulmonic valvular stenosis. * Trace pulmonic valvular regurgitation. Great Vessels * The aortic root is normal size. Pericardium/Pleural * There is no pericardial effusion. Great Vessels * IVC poorly visualized. It appears to be of normal diameter and to exhibit normal respiratory variation in diameter.. MMode 2D Measurements and Calculations IVSd 1.1 cm IVSs 1.4 cm LVIDd 4.7 cm LVIDs 3.2 cm LVPWd 1.1 cm LVPWs 1.2 cm IVS/LVPW 1.0 FS 32.2 % EDV(Teich) 103.0 ml ESV(Teich) 40.8 ml EF(Teich) 60.4 % EDV(cubed) 104.6 ml ESV(cubed) 32.6 ml EF(cubed) 68.9 % % IVS thick 24.9 % % LVPW thick 11.7 % LV mass(C)d 193.3 grams LV mass(C)dI 88.7 grams/m\S\2 LV mass(C)s 140.0 grams LV mass(C)sI 64.2 grams/m\S\2 SV(Teich) 62.2 ml SI(Teich) 28.6 ml/m\S\2 SV(cubed) 72.0 ml SI(cubed) 33.1 ml/m\S\2 Ao root diam 2.8 cm Ao root area 6.0 cm\S\2 ACS 2.2 cm LA dimension 3.1 cm LA/Ao 1.1 LVOT diam 1.9 cm LVOT area 2.7 cm\S\2 LVAd ap4 30.1 cm\S\2 LVLd ap4 7.0 cm EDV(MOD-sp4) 107.2 ml EDV(sp4-el) 110.3 ml LVAs ap4 19.5 cm\S\2 LVLs ap4 6.2 cm ESV(MOD-sp4) 53.0 ml ESV(sp4-el) 52.0 ml EF(MOD-sp4) 50.6 % EF(sp4-el) 52.9 % LVAd ap2 28.5 cm\S\2 LVLd ap2 7.0 cm EDV(MOD-sp2) 93.0 ml EDV(sp2-el) 97.5 ml LVAs ap2 17.7 cm\S\2 LVLs ap2 6.1 cm ESV(MOD-sp2) 43.1 ml ESV(sp2-el) 43.6 ml EF(MOD-sp2) 53.7 % EF(sp2-el) 55.3 % LVLd %diff 1.2 % EDV(MOD-bp) 101.0 ml LVLs %diff -1.33 % ESV(MOD-bp) 47.4 ml EF(MOD-bp) 53.0 % SV(MOD-sp4) 54.2 ml SI(MOD-sp4) 24.9 ml/m\S\2 SV(MOD-sp2) 49.9 ml SI(MOD-sp2) 22.9 ml/m\S\2 SV(MOD-bp) 53.6 ml SI(MOD-bp) 24.6 ml/m\S\2 SV(sp4-el) 58.3 ml SI(sp4-el) 26.8 ml/m\S\2 SV(sp2-el) 53.9 ml SI(sp2-el) 24.7 ml/m\S\2 Doppler Measurements and Calculations MV E max shahnaz 89.0 cm/sec MV A max shahnaz 63.1 cm/sec MV E/A 1.4 MV P1/2t max shahnaz 100.1 cm/sec MV P1/2t 61.2 msec MVA(P1/2t) 3.6 cm\S\2 MV dec slope 478.6 cm/sec\S\2 MV dec time 0.15 sec Ao V2 max 109.6 cm/sec Ao max PG 4.8 mmHg Ao max PG (full) 1.4 mmHg EVELIN(V,A) 2.3 cm\S\2 EVELIN(V,D) 2.3 cm\S\2 LV V1 max PG 3.4 mmHg LV V1 max 91.7 cm/sec PA V2 max 94.0 cm/sec PA max PG 3.5 mmHg
[2017-01-29] MEDS: ALBUT/IPRATROP 3MG/0.5MG NEB 3 ML VIAL INH SCH ×2 (15:39→20:56)
[2017-01-29 16:11] LABS: URINE APPEARANCE CLEAR (CLEAR); URINE BILIRUBIN NEG (NEG); URINE COLOR YELLOW; URINE NITRITE NEG (NEG); URINE PH 6.5 (4.5-7.5); UROBILINOGEN NEG (NEG)
[2017-01-29 16:18] LABS: MANUAL MICROSCOPIC REQUIRED? NO; REVIEW REQ? NO
[2017-01-29] MEDS: SODIUM CHLORIDE 0.9% 1000ML 1,000 ML IV SCH ×2 (16:58→22:29)
[2017-01-29] MEDS: ENOXAPARIN 40 MG/0.4 ML SYR SC SCH (16:59)
[2017-01-30] VITALS (11 sets, daily range): BP systolic 118–134; BP diastolic 70–84; PULSE 76–99; TEMP 36.5–37; O2SAT 91–98
[2017-01-30 06:10] LABS: COMPLETE YES; HEMATOCRIT 40.9 % (42-52); IG% 0.2 %; LYMPH ABS # 1.17 K/uL (1.2-3.4); MEAN CELL VOLUME 91.1 fL (80-100); MEAN CORPUSCULAR HEMOGLOBIN 30.1 pg (25-34); MEAN PLATELET VOLUME 9.3 fL (7.4-10.4); MONO % 13.8 %; PLATELET COUNT 282 K/uL (130-400); RED BLOOD COUNT 4.49 M/uL (4.7-6.1); WHITE BLOOD COUNT 8.33 K/uL (4.8-10.8)
[2017-01-30 06:57] LABS: BLOOD UREA NITROGEN 7 mg/dl (7-18); BUN/CREATININE RATIO 10.7 (10-20); CALCIUM 9.2 mg/dl (8.5-10.1); CARBON DIOXIDE 26 mmol/L (21-32); CHLORIDE 113 mmol/L (98-107); CREATININE 0.66 mg/dl (0.60-1.40); GLUCOSE 109 mg/dl (70-99); MAGNESIUM 2.1 mg/dl (1.8-2.4); POTASSIUM 3.9 mmol/L (3.5-5.1); SODIUM 145 mmol/L (136-145)
[2017-01-30 07:19] LABS: PHOSPHORUS 1.4 mg/dl (2.5-4.9); THYROID STIMULATING HORMONE 0.031 uIu/ml (0.300-4.500)
[2017-01-30] MEDS: ALBUT/IPRATROP 3MG/0.5MG NEB 3 ML VIAL INH SCH ×4 (07:43→19:43)
[2017-01-30] MEDS: SODIUM CHLORIDE 0.9% 1000ML 1,000 ML IV SCH ×2 (08:40→18:06)
[2017-01-30] MEDS ORDERED: POTASSIUM PHOS 3 MMOL/1 ML INFUSION IV STA (08:48)
[2017-01-30] MEDS ORDERED: POTASSIUM PHOSPHATE INJ 24 MMOL in SODIUM CHLORIDE 0.9% 500ML 500 ML IV SCH (09:15)
[2017-01-30] MEDS: CEFTRIAXONE SOD INJ 1 GM in DEXTROSE 5% ADD-VANTAGE 50ML 50 ML IV SCH (09:23)
[2017-01-30] MEDS: AZITHROMYCIN IV 500 MG in DEXTROSE 5% 250ML 250 ML IV SCH (12:09)
--- NOTE | 2017-01-30 14:00 | Hospitalist Progress Note ---
Hospitalist Progress Note Date of Service Jan 30, 2017. (Jenifer Sampson ., ESTELITA) Subjective Pt evaluation today including: conversation w/ patient, physical exam, lab review, review of studies, review of inpatient medication list Voiding: no voiding problems Patient states he is feeling well. Much improvement since admission. +cough, with green sputum production. Eating and drinking OK. No further fever, chills, palpitations. Patient denies any fever, chills, sweats, lightheadedness, dizziness, vision changes, CP, palpitations, edema, SOB, wheezing, abdominal pain, nausea, vomiting, diarrhea, urinary symptoms, melena, numbness/tingling, weakness, muscle/joint pain, anxiety/depression, active bleeding, or new skin discoloration/changes. (Jenifer Sampson, WOOC) Medications Current Inpatient Medications Medications (Trade) Dose Ordered Sig/Tj Route Start Time Stop Time Status Last Admin Dose Admin Enoxaparin Sodium (Lovenox Inj) 40 mg Q24H SC 01/29/17 16:00 02/28/17 15:59 01/29/17 16:59 40 MG Sodium Chloride 1,000 ml @ 100 mls/hr Q10H IV 01/29/17 11:47 02/28/17 11:46 01/30/17 08:40 100 MLS/HR Al Hydrox/Mg Hydrox/Simethicone (Maalox Max Susp) 15 ml Q4H PRN PO 01/29/17 12:00 02/28/17 11:59 Magnesium Hydroxide (Milk Of Magnesia Susp) 30 ml Q12H PRN PO 01/29/17 12:00 02/28/17 11:59 Zolpidem Tartrate (Ambien Tab) 5 mg HSZ PRN PO 01/29/17 12:00 02/28/17 11:59 Ondansetron HCl (Zofran Inj) 4 mg Q6H PRN IV 01/29/17 12:00 02/28/17 11:59 Polyethylene (Miralax Powder Packet) 17 gm DAILY PRN PO 01/29/17 12:00 02/28/17 11:59 Ceftriaxone Sodium 1 gm/ Dextrose 50 ml @ 100 mls/hr Q24H IV 01/30/17 10:00 02/06/17 09:59 01/30/17 09:23 100 MLS/HR Azithromycin 500 mg/Dextrose 255 ml @ 170 mls/hr Q24H IV 01/30/17 12:00 02/06/17 11:59 01/30/17 12:09 170 MLS/HR Albuterol/ Ipratropium (Duoneb) 3 ml QIDR INH 01/29/17 16:00 02/28/17 15:59 01/30/17 15:09 3 ML Prednisone (PredniSONE TAB) 40 mg BIDM PO 01/29/17 16:30 02/28/17 16:29 01/30/17 08:40 40 MG Ioversol (Optiray 320) 100 ml UD PRN IV 01/29/17 12:15 02/02/17 12:14 Miscellaneous Information 1 ea UD PRN N/A 01/29/17 12:30 02/28/17 12:29 Miscellaneous Information 1 ea UD PRN N/A 01/29/17 12:30 02/28/17 12:29 Potassium Phosphate 24 mmol/ Sodium Chloride 508 ml @ 88 mls/hr TODAY@0915 IV 01/30/17 09:15 01/30/17 16:00 01/30/17 09:23 88 MLS/HR Pantoprazole Sodium (Protonix Tab) 40 mg QAM PO 01/31/17 09:00 03/02/17 08:59 (Jenifer Sampson, ESTELITA) Objective Vital Signs Date Time Temp Pulse Resp B/P (MAP) Pulse Ox O2 Delivery O2 Flow Rate FiO2 01/30/17 12:10 Room Air 01/30/17 11:34 36.5 99 16 122/70 (87) 95 Room Air 01/30/17 11:10 91 18 91 Room Air 01/30/17 08:35 Room Air 01/30/17 07:43 96 18 97 Nasal Cannula 2.0 01/30/17 07:37 37.0 90 16 118/72 (87) 91 Room Air 01/30/17 04:00 Room Air 01/30/17 03:57 36.9 97 16 134/73 (93) 97 Room Air 01/30/17 00:00 Room Air 01/29/17 23:48 36.7 100 16 156/81 (106) 97 Nasal Cannula 2.0 01/29/17 20:58 96 18 96 Nasal Cannula 2.0 01/29/17 20:00 96 Nasal Cannula 2.0 01/29/17 19:05 37.2 103 16 126/73 (90) 96 Nasal Cannula 2.0 01/29/17 16:00 Nasal Cannula 2.0 01/29/17 15:50 36.2 91 15 121/65 (83) 97 Nasal Cannula 2.0 01/29/17 15:47 95 18 98 Nasal Cannula 2.0 01/29/17 14:25 37.1 94 16 122/72 94 Nasal Cannula 2.0 (Jenifer Sampson, PA-C) Physical Exam General Appearance: no apparent distress, + obese Eyes: normal inspection, PERRL ENT: hearing grossly normal Neck: supple Respiratory/Chest: no respiratory distress, no accessory muscle use, + wheezing (throughout all lung flores ), + pertinent finding (course breath sounds throughout all lung flores ) Cardiovascular: regular rate, rhythm Abdomen: normal bowel sounds, non tender, soft Extremities: no pedal edema, no calf tenderness Neurologic/Psychiatric: alert, normal mood/affect, oriented x 3 Skin: normal color, warm/dry, no rash (Jenifer Sampson ., PA-C) Laboratory Results Last 24 Hours Test 01/29/17 15:00 01/29/17 18:35 01/30/17 05:37 Urine Color YELLOW Urine Appearance CLEAR Urine pH 6.5 Urine Specific [place] 1.030 Urine Protein NEG Urine Glucose (UA) NEG Urine Ketones NEG Urine Occult Blood NEG Urine Nitrite NEG Urine Bilirubin NEG Urine Urobilinogen NEG Urine Leukocyte Esterase NEG White Blood Count 8.33 K/uL Red Blood Count 4.49 M/uL Hemoglobin 13.5 g/dL Hematocrit 40.9 % Mean Corpuscular Volume 91.1 fL Mean Corpuscular Hemoglobin 30.1 pg Mean Corpuscular Hemoglobin Concent 33.0 g/dl Platelet Count 282 K/uL Mean Platelet Volume 9.3 fL Neutrophils (%) (Auto) 72.0 % Lymphocytes (%) (Auto) 14.0 % Monocytes (%) (Auto) 13.8 % Eosinophils (%) (Auto) 0.0 % Basophils (%) (Auto) 0.0 % Neutrophils # (Auto) 5.99 K/uL Lymphocytes # (Auto) 1.17 K/uL Monocytes # (Auto) 1.15 K/uL Eosinophils # (Auto) 0.00 K/uL Basophils # (Auto) 0.00 K/uL RDW Standard Deviation 40.4 fL RDW Coefficient of Variation 12.1 % Immature Granulocyte % (Auto) 0.2 % Immature Granulocyte # (Auto) 0.02 K/uL Sodium Level 145 mmol/L Potassium Level 3.9 mmol/L Chloride Level 113 mmol/L Carbon Dioxide Level 26 mmol/L Anion Gap 6.0 mmol/L Blood Urea Nitrogen 7 mg/dl Creatinine 0.66 mg/dl Est Creatinine Clear Calc Drug Dose 200.8 ml/min Estimated GFR () > 150.0 Estimated GFR (Non- 135.3 BUN/Creatinine Ratio 10.7 Random Glucose 109 mg/dl Calcium Level 9.2 mg/dl Phosphorus Level 1.4 mg/dl Magnesium Level 2.1 mg/dl Thyroid Stimulating Hormone (TSH) 0.031 uIu/ml Free Thyroxine 1.24 ng/dl (Jenifer Sampson ., PA-C) Assessment and Plan 26 y/o male, with PMHx of headaches, bronchitis, and GERD, who presented to the ED on 01/29 due to complaints of cough, fever, SOB, N/V/D, and diaphoresis. ?Acute bronchitis/gastroenteritis vs infectious proces: - IV Azithromycin + Rocephin- started on 01/29 - Prednisone taper starting on 01/29 at 40 mg - DuoNeb QID and PRN SOB/wheezing - BCx pending - Sputum cultures pending - UA and influenza negative - Leukocytosis- RESOLVED Tachycardia- IMPROVING: - Admit to tele for cardiac monitoring - Cardiac enzymes- negative - CTA negative for PE - ECHO unremarkable - TSH 0.031 and T4 1.24 Hypophosphatemia: IV phosphate supplement, follow phosphorus level and replace PRN Tobacco abuse: Smoking cessation counselling GI prophylaxis: Protonix daily DVT prophylaxis: Lovenox SQ Code Status: LEVEL I, FULL Dispo: From home- no discharge needs anticipated (Jenifer Sampson ., PA-C) Attending Attestation: Pt seen/examined, chart reviewed, care plan d/w JUANITO Sampson. I agree w/ the bates components of her documentation. Pt feeling better. Reports father has had long-standing asthma. Pt started developing "Bronchitis" in early teenage years (prior to any tobacco use). VSS o2 sats now normal gen - nad heart - RRR lungs - diffuse wheeze/rhonchi on right, mild rales right base, left lung clear abd - soft A/P: 1. acute hypoxic resp failure 2nd to acute bronchitis & RUL/RLL pneumonia 2. pneumonia, community-acquired 3. ?underlying longstanding asthma? cont prednisone cont bronchodilators cont IV abx for right-sided pneumonia anticipate conversion to PO abx tomorrow with d/c home replace phos outpatient pulmonary referral to r/o underlying asthma Camille SOLORZANO MD (Jayme Solorzano MD)
[2017-01-30] MEDS: ENOXAPARIN 40 MG/0.4 ML SYR SC SCH (15:47)
[2017-01-30] MEDS: GUAIFENESIN 600 MG TABCR PO SCH (20:35)
[2017-01-31 04:00] VITALS: BP 118/70; PULSE 61; TEMP 37.1; O2SAT 95
[2017-01-31] MEDS: ALBUT/IPRATROP 3MG/0.5MG NEB 3 ML VIAL INH SCH ×2 (07:06→11:17)
[2017-01-31 07:09] VITALS: PULSE 84; O2SAT 96
[2017-01-31 07:35] VITALS: BP 115/72; PULSE 93; TEMP 37.2; O2SAT 95
[2017-01-31] MEDS: GUAIFENESIN 600 MG TABCR PO SCH (07:54)
[2017-01-31] MEDS ORDERED: PANTOprazole SOD 40 MG TAB PO SCH (09:00)
[2017-01-31] MEDS: CEFTRIAXONE SOD INJ 1 GM in DEXTROSE 5% ADD-VANTAGE 50ML 50 ML IV SCH (09:46)
[2017-01-31 11:18] VITALS: PULSE 78; O2SAT 95
[2017-01-31] MEDS: AZITHROMYCIN IV 500 MG in DEXTROSE 5% 250ML 250 ML IV SCH (11:33)
[2017-01-31 11:38] VITALS: BP 105/63; PULSE 79; TEMP 36.2; O2SAT 93
[2017-01-31] MEDS ORDERED: ALBUTEROL HFA 8 GM INHALER INH PRN (12:30)
[2017-01-31] MEDS ORDERED: LVQ750 PO (12:44)
[2017-01-31] MEDS ORDERED: PRD20 PO (12:44)
[2017-01-31] MEDS ORDERED: PRVHFAIN INH (12:44)
--- NOTE | 2017-01-31 12:54 | Discharge Instructions ---
Discharge Instructions Date of Service Jan 31, 2017. Admission Reason for Admission: 1. Acute Bronchitis / Pneumonia. 2. Wheezing secondary to Reactive Airway / Asthma. 3. Hypoxemia secondary to problems #1 and #2. 4. Fever. Discharge Discharge Diagnosis / Problem: Pneumonia, Acute Bronchitis. Wheezing, fever, and Hypoxia. Discharge Goals Goal(s): Improve function, Improve disease control, Therapeutic intervention Activity Recommendations Activity Limitations: as noted below Lifting Limitations: gradually increase as tolerated Exercise/Sports Limitations: gradually increase as tolerated May Resume Sexual Activity: when tolerated Shower/Bathe: no limitations Driving or Machine Use: no limitations . Instructions / Follow-Up Instructions / Follow-Up 1. Take medications as directed. 2. Follow up with your PCP within the next 1 to 2 weeks. 3. You will be referred to Pulmonology for further evaluation. 4. Call if any problems, questions, worsening symptoms, or any fevers. Current Hospital Diet Patient's current hospital diet: Regular Diet Discharge Diet Recommended Diet: Regular Diet Fluid Restriction: None (No fluid restrictions) Procedures Procedures Performed: CT Angiogram of chest / lungs. Chest X-ray. Pending Studies Studies pending at discharge: no Laboratory Results Test 01/29/17 09:35 01/29/17 09:43 01/29/17 10:29 01/29/17 11:55 Influenza Type A Antigen Neg for Influ A Influenza Type B Antigen Neg for Influ B White Blood Count 13.73 Red Blood Count 4.56 Hemoglobin 14.0 Hematocrit 41.5 Mean Corpuscular Volume 91.0 Mean Corpuscular Hemoglobin 30.7 Mean Corpuscular Hemoglobin Concent 33.7 Platelet Count 260 Mean Platelet Volume 9.0 Neutrophils (%) (Auto) 85.3 Lymphocytes (%) (Auto) 5.8 Monocytes (%) (Auto) 7.9 Eosinophils (%) (Auto) 0.7 Basophils (%) (Auto) 0.1 Neutrophils # (Auto) 11.72 Lymphocytes # (Auto) 0.79 Monocytes # (Auto) 1.08 Eosinophils # (Auto) 0.10 Basophils # (Auto) 0.01 RDW Standard Deviation 40.0 RDW Coefficient of Variation 12.0 Immature Granulocyte % (Auto) 0.2 Immature Granulocyte # (Auto) 0.03 Erythrocyte Sedimentation Rate 5 Prothrombin Time 10.7 Prothrombin Time INR 1.0 PTT 27.0 Partial Thromboplastin Ratio 1.0 Sodium Level 137 Potassium Level 3.5 Chloride Level 103 Carbon Dioxide Level 31 Anion Gap 3.0 Blood Urea Nitrogen 6 Creatinine 0.89 Est Creatinine Clear Calc Drug Dose 150.5 Estimated GFR () 138.7 Estimated GFR (Non- 119.7 BUN/Creatinine Ratio 7.1 Random Glucose 153 Calcium Level 8.9 Creatine Kinase MB 0.8 Troponin I 0.032 C-Reactive Protein 5.48 POC Lactic Acid Venous 1.17 Creatine Kinase MB Ratio Test 01/29/17 15:00 01/29/17 18:35 01/30/17 05:37 01/31/17 05:46 Urine Color YELLOW Urine Appearance CLEAR Urine pH 6.5 Urine Specific [place] 1.030 Urine Protein NEG Urine Glucose (UA) NEG Urine Ketones NEG Urine Occult Blood NEG Urine Nitrite NEG Urine Bilirubin NEG Urine Urobilinogen NEG Urine Leukocyte Esterase NEG Legionella Culture Pending White Blood Count 8.33 Red Blood Count 4.49 Hemoglobin 13.5 Hematocrit 40.9 Mean Corpuscular Volume 91.1 Mean Corpuscular Hemoglobin 30.1 Mean Corpuscular Hemoglobin Concent 33.0 Platelet Count 282 Mean Platelet Volume 9.3 Neutrophils (%) (Auto) 72.0 Lymphocytes (%) (Auto) 14.0 Monocytes (%) (Auto) 13.8 Eosinophils (%) (Auto) 0.0 Basophils (%) (Auto) 0.0 Neutrophils # (Auto) 5.99 Lymphocytes # (Auto) 1.17 Monocytes # (Auto) 1.15 Eosinophils # (Auto) 0.00 Basophils # (Auto) 0.00 RDW Standard Deviation 40.4 RDW Coefficient of Variation 12.1 Immature Granulocyte % (Auto) 0.2 Immature Granulocyte # (Auto) 0.02 Sodium Level 145 Potassium Level 3.9 Chloride Level 113 Carbon Dioxide Level 26 Anion Gap 6.0 Blood Urea Nitrogen 7 Creatinine 0.66 Est Creatinine Clear Calc Drug Dose 200.8 Estimated GFR () > 150.0 Estimated GFR (Non- 135.3 BUN/Creatinine Ratio 10.7 Random Glucose 109 Calcium Level 9.2 Phosphorus Level 1.4 4.5 Magnesium Level 2.1 Thyroid Stimulating Hormone (TSH) 0.031 Free Thyroxine 1.24 Work Instructions Return To Work: 1 week Lifting Limitations: none Medical Emergencies . Who to Call and When: Medical Emergencies: If at any time you feel your situation is an emergency, please call 911 immediately. . Non-Emergent Contact Non-Emergency issues call your: Primary Care Provider Call Non-Emergent contact if: you have a fever, you have any medication questions (Worsening respiratory status. Recurrent shortness of breath.) . . "Provider Documentation" section prepared by Alexy Lindsay. I agree with the discharge instructions as outlined by Mr. Alexy Lindsay. Jayme Solorzano MD . VTE Core Measure Inpt VTE Proph given/why not?: Enoxaparin (Lovenox)SQ [place] Drug Monitoring Program Search Results: no issues identified
--- NOTE | 2017-01-31 13:06 | DISCHARGE SUMMARY ---
DATE: 01/31/2017 DISCHARGE SUMMARY AND PROGRESS NOTE HISTORY OF PRESENT ILLNESS: Mr. Nieves is a very pleasant 26-year-old white male who was admitted acutely on 01/29/2017 with acute respiratory distress and hypoxemia secondary to acute bronchitis with reactive airway, or more likely some underlying asthma. The patient was given supplemental oxygen, IV corticosteroids, IV azithromycin and IV ceftriaxone. The patient had a good clinical response with these medications, he became short of breath, and his oxygen saturations returned to normal. He continues to improve overall. The patient continues to cough and produces a yellowish sputum. He continues to wheeze, but does not feel short of breath or breathless at any time. He has not had any fevers, chills, headache, stiff neck. He has not had any chest discomfort. The patient offers no other complaints or concerns. PHYSICAL EXAMINATION: VITAL SIGNS: Temperature is 36.2 degrees Celsius, pulse 80 and regular, respiratory rate 16 nonlabored, blood pressure is 105/63. SPO2 is 93% on room air. GENERAL: The patient is in no acute distress. HEAD, EYES, EARS, NOSE, AND THROAT: Head is atraumatic, normocephalic. EOMs intact. Sclerae are anicteric. Face is symmetric. No perioral cyanosis. Mucous membranes moist. NECK: Without JVD. No lymphadenopathy. CHEST AND LUNGS: With diffuse slight inspiratory and expiratory wheezes, no obvious crackles. Good air movement otherwise sounds good. CARDIOVASCULAR: S1 and S2 are regular without murmur, gallop or rub. PMI is nondisplaced. No lifts, heaves, or thrills. No abdominal, aortic or renal bruits. ABDOMINAL EXAMINATION: Bowel sounds are present. No masses, organomegaly, or tenderness. EXTREMITIES: Without clubbing, cyanosis or edema. NEUROLOGIC: The patient is awake, alert and oriented, pleasant, cooperative. Answers questions appropriately. Speech is clear. Normal movement in all 4 extremities. Gait pattern not assessed. LABORATORY DATA: White blood cell count 8.33. Hemoglobin 13.5 g/dl, hematocrit 40.9%, platelet count is 282,000. Sodium is 145 mmol/L, potassium 3.9 mmol/L, BUN 7 mg/dL. Creatinine is 0.66 mg/dL. Random glucose 109 mg/dL. Phosphorus level 4.5 mg/dL. Serum magnesium level 2.1 mg/dL. C-reactive protein is elevated at 5.48 mg/dL. TSH suppressed at 0.031 uIU per mL with a normal free T4 of 1.24 ng/dL. Influenza A, influenza B are negative. Legionella culture is pending. IMAGING: CT angiogram of the chest and lungs reveals unremarkable vasculature. He does have consolidative infiltrate in the anterior aspect of the right upper lobe and also a peripheral infiltrate superior segment of right lower lobe measuring 1.7 cm, very likely pneumonia/infectious process. ASSESSMENT: 1. Acute bronchitis/community-acquired pneumonia with reactive airway disease versus underlying asthma. 2. Hypoxemia on admission secondary to problem #1. 3. Stable for discharge to home. PLAN: 1. The patient will be discharged to home today. 2. He should follow up with his PCP, and he will be referred for outpatient resident care provider consultation regarding probable underlying asthma. Would recommend pulmonary function testing both pre- and post for further evaluation as an outpatient. 3. The patient will be discharged to home on Levaquin 750 mg p.o. every day x7 days. 4. Continue Prednisone taper at 30 mg a day for 2 days followed by 20 mg a day for 2 days followed by 10 mg a day for 2 days then discontinued. 5. Albuterol MDI 2 puffs p.o. q.i.d. and q. 2-3 hours as needed for wheezing. 6. The patient will seek further medical attention if he has any recurrence of symptoms, recurrent fever, progressive shortness of breath, worsening pulmonary status, etc. Attending Discharge Note & Attestation: Pt seen/examined, chart reviewed, discharge care plan d/w JUANITO Lindsay. I agree with the bates components of his discharge summary. 26yo male with recurrent "bronchitis" since early teenage years who presented with wheezing, cough, and fever. CTA chest showed evidence of RUL/RLL infiltrates. He had evidence of bronchitis with extensive wheezing and increased work of breathing. His acute hypoxic resp failure & pneumonia were treated with nebs, steroids, and antibiotics. His O2 was weaned off and all pulmonary symptoms improved. He will complete a course of prednisone and antibiotics after discharge and was encouraged to use albuterol scheduled for several days. A pulmonary referral will be made as he may have underlying asthma given his recurrent "bronchitis" history as well as strong family history of asthma. Discharge exam - gen - nad heart - RRR lungs - mild end-exp wheeze b/l, modestly worse on right; mild crackles RUL abd - soft ext - no edema Jayme Solorzano MD [facility]
[2017-01-31 13:09] VITALS: BP 105/63; PULSE 79; TEMP 36.2; O2SAT 93
== END 2017-01-31 13:55 | disposition home or self-care (01) | DRG 194 ==
LOC: C.EDB 09:02 → C.MSICU 11:52 → ENRESERV 13:46 → C.MED 18:50
PROVIDERS: ADMIT Hospitalist; ATTEND Internal Medicine
DX: J18.9 Pneumonia, unspecified organism (principal); J21.9 Acute bronchiolitis, unspecified; R09.02 Hypoxemia; J45.909 Unspecified asthma, uncomplicated; R00.0 Tachycardia, unspecified; Z87.891 Personal history of nicotine dependence; Z80.9 Family history of malignant neoplasm, unspecified; Z82.49 Family history of ischemic heart disease and other diseases of the circulatory system

== ENCOUNTER 2021-12-20 11:38 | Inpatient (IN) ==
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
[2021-12-20] MEDS ORDERED: ALBUT/IPRATROP 3MG/0.5MG NEB 3 ML VIAL INH STA (12:07)
[2021-12-20] MEDS ORDERED: PIPERACILLIN/TAZOBACTAM 4.5 GM/120 ML BAG IV ONE (12:07)
[2021-12-20] MEDS ORDERED: SODIUM CHLORIDE 0.9% 1000ML 1,000 ML IV SCH (12:15)
[2021-12-20] MEDS ORDERED: AZITHROMYCIN 500 MG in DEXTROSE 5% 250 ML IV ONE (12:30)
[2021-12-20] MEDS ORDERED: cefTRIAXone SODIUM 2000MG/70ML D5W IV STA (12:30)
[2021-12-20 12:36] LABS: Basophils # (auto) 0.03 K/uL (0-0.2); Basophils % (auto) 0.2 %; Hemoglobin 15.8 g/dl (14.0-18.0); Immature Granulocytes # (auto) 0.09 K/uL (0.00-0.02); Immature Granulocytes % (auto) 0.5 %; Lymphocytes # (auto) 0.78 K/uL (1.2-3.4); Mean Corpuscular Hemoglobin 32.2 pg (25.0-34.0); Mean Corpuscular Hgb Conc 35.9 g/dL (32.0-36.0); Mean Corpuscular Volume 89.8 fL (80.0-100.0); Mean Platelet Volume 9.1 fL (9.4-12.4); Monocytes # (auto) 1.35 K/uL (0.24-0.82); Neutrophils # (auto) 17.06 K/uL (1.4-6.5); Neutrophils % (auto) 88.3 %; Platelet Count 256 K/uL (130-400); RDW Coefficient of Variation 11.3 % (11.5-14.5); White Blood Count 19.31 K/ul (4.8-10.8)
[2021-12-20] MEDS ORDERED: SODIUM CHLORIDE 0.9% 1000ML 1,000 ML IV ONE (13:23)
[2021-12-20 13:39] LABS: Alanine Aminotransferase 34 U/L (7-52); Albumin Globulin Ratio 1.8 (0.9-2); Albumin Level 4.5 gm/dl (3.4-5.0); Alkaline Phosphatase 64 U/L (34-104); Anion Gap 10 (3-11); Aspartate Aminotransferase 33 U/L (13-39); BUN Creatinine Ratio 17.3 (10-20); Bilirubin,Total 0.8 mg/dl (0.2-1.0); Blood Urea Nitrogen 17 mg/dl (6-23); Calcium 9.3 mg/dl (8.5-10.1); Carbon Dioxide 22 mmol/L (21-32); Chloride 102 mmol/L (98-107); Est GFR (African American) 120.3 ml/min; Est GFR (Non-African American) 103.8 ml/min; Globulin 2.5 gm/dl (2.5-4.0); Glucose 118 mg/dl (70-99(Fasting)); Potassium 4.5 mmol/L (3.5-5.1); Sodium 134 mmol/L (136-145); Troponin I High Sensitivity 108.4 pg/ml (0-20)
[2021-12-20] MEDS ORDERED: OPTIRAY 320 125ml IV ONE (13:52)
--- NOTE | 2021-12-20 14:11 | CT Scan Report ---
CT ANGIOGRAPHY OF THE CHEST, PULMONARY EMBOLUS PROTOCOL CLINICAL HISTORY: Dyspnea, SOB, hypoxemic, hemoptysis COMPARISON STUDY: Chest CT January 29, 2017. TECHNIQUE: Following IV administration of 118 mL of Optiray, helical axial images of the chest were o btained utilizing the pulmonary embolus protocol. Maximal intensity projections and sagittal and cor onal reformats were viewed on an independent 3D workstation. IV contrast was administered without co mplication. Automated exposure control was utilized for the study. A dose lowering technique was ut ilized adhering to the principles of ALARA. CT DOSE: 559.48 mGycm FINDINGS: No pulmonary emboli are identified. There is no thoracic aortic dissection. Size of the he art is normal. There is no pericardial effusion. No pneumothorax or pleural effusion is noted. Diffus e alveolar opacities throughout the lungs are noted. There is mild interlobular septal thickening. No cavitation is present. Central airways are patent. No central obstructing mass. No acute fracture or suspicious lesion within the visualized bony thorax. Visualized portions of the upper abdomen are un remarkable. Calcified left hilar lymph nodes are incidentally noted. IMPRESSION: 1. No pulmonary emboli identified. 2. Diffuse alveolar opacities throughout the lungs. Differential considerations include multifocal pn eumonia, pulmonary edema and pulmonary hemorrhage. ACT 112: Negative or not required by law. Electronically signed by: Artemio Martinez M.D. 12/20/2021 2:10 PM
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
--- NOTE | 2021-12-20 15:22 | Electrocardiogram Report ---
Test Reason : Blood Pressure : / mmHG Vent. Rate : 107 BPM Atrial Rate : 107 BPM P-R Int : 136 ms QRS Dur : 074 ms QT Int : 316 ms P-R-T Axes : 062 077 055 degrees QTc Int : 421 ms Poor data quality, interpretation may be adversely affected Sinus tachycardia Otherwise normal ECG When compared with ECG of 29-JAN-2017 12:14, No significant change was found Confirmed by Arnol Higginbotham ([id number]) on 12/20/2021 3:22:14 PM Referred By: Confirmed By:Arsen Higginbotham
[2021-12-20] MEDS ORDERED: POLYETHYLENE (MIRALAX) 17 GM PACK PO PRN (16:48)
[2021-12-20] MEDS ORDERED: ACETAMINOPHEN 325 MG TAB PO PRN (16:48)
[2021-12-20] MEDS ORDERED: ALBUT/IPRATROP 3MG/0.5MG NEB 3 ML VIAL NEB SCH (16:48)
[2021-12-20] MEDS ORDERED: ONDANSETRON INJ 2 MG/ML 2 ML VIAL IV PRN (16:48)
[2021-12-20] MEDS ORDERED: ALBUT/IPRATROP 3MG/0.5MG NEB 3 ML VIAL NEB PRN ×2 (17:24→17:29)
[2021-12-20] MEDS: methylPREDNISolone 40 MG in SYRINGE 0 ML IV SCH ×2 (17:58→21:00)
[2021-12-20 19:25] LABS: Adenovirus PCR Not Detected (NotDetected); Bordetella parapertussis PCR Not Detected (NotDetected); Bordetella pertussis PCR Not Detected (NotDetected); Chlamydia pneumoniae PCR Not Detected (NotDetected); Coronavirus 229E PCR Not Detected (NotDetected); Coronavirus CoV-2 (COVID19)PCR Not Detected (NotDetected); Coronavirus HKU1 PCR Not Detected (NotDetected); Coronavirus NL63 PCR Not Detected (NotDetected); Coronavirus OC43PCR Not Detected (NotDetected); Human Metapneumovirus PCR Not Detected (NotDetected); Influenza A PCR Not Detected (NotDetected); Influenza B PCR Not Detected (NotDetected); Mycoplasma pneumoniae PCR Not Detected (NotDetected); Parainfluenza Virus 1 PCR Not Detected (NotDetected); Parainfluenza Virus 2 PCR Not Detected (NotDetected); Parainfluenza Virus 3 PCR Not Detected (NotDetected); Parainfluenza Virus 4 PCR Not Detected (NotDetected); Respiratory Syncytial VirusPCR Not Detected (NotDetected); Rhinovirus/Enterovirus PCR Not Detected (NotDetected)
[2021-12-21 05:57] LABS: Hematocrit (blood only) 38.8 % (40.1-51.0); Hemoglobin 13.7 g/dl (14.0-18.0); Mean Corpuscular Hemoglobin 31.9 pg (25.0-34.0); Mean Corpuscular Hgb Conc 35.3 g/dL (32.0-36.0); Mean Corpuscular Volume 90.2 fL (80.0-100.0); Mean Platelet Volume 9.1 fL (9.4-12.4); Platelet Count 227 K/uL (130-400); RDW Coefficient of Variation 11.4 % (11.5-14.5); RDW Standard Deviation 37.4 fL (36.4-46.3); White Blood Count 16.64 K/ul (4.8-10.8)
[2021-12-21 06:22] LABS: BUN Creatinine Ratio 15.9 (10-20); Basophils # (auto) 0.01 K/uL (0-0.2); Basophils % (auto) 0.1 %; Calcium 9.2 mg/dl (8.5-10.1); Est GFR (African American) 134.5 ml/min; Est GFR (Non-African American) 116.1 ml/min; Immature Granulocytes # (auto) 0.08 K/uL (0.00-0.02); Immature Granulocytes % (auto) 0.5 %; Lymphocytes # (auto) 0.86 K/uL (1.2-3.4); Lymphocytes % (auto) 5.2 %; Monocytes % (auto) 1.8 %; Neutrophils # (auto) 15.39 K/uL (1.4-6.5); Neutrophils % (auto) 92.4 %; Potassium 4.2 mmol/L (3.5-5.1)
[2021-12-21 06:28] LABS: Troponin I High Sensitivity 72.2 pg/ml (0-20)
[2021-12-21] MEDS ORDERED: VANCOMYCIN CONSULT ACTIVE PRN (07:45)
[2021-12-21] MEDS ORDERED: VANCOMYCIN HCL 2,000 MG in SODIUM CHLORIDE 0.9% 500 ML IV ONE (08:30)
--- NOTE | 2021-12-21 09:11 | Hospitalist Progress Note ---
Date of Service December 21, 2021 Assessment & Plan (1) Sepsis due to pneumonia: Plan: Multifocal community-acquired pneumonia with sepsis -Septic on admission- WBC 19.3, lactate 2.2, procalcitonin 19, tachypnea + tachycardia -CTA chest- diffuse alveolar opacities of b/l lungs, differential includes multifocal PNA vs edema vs hemorrhage -Ceftriaxone/azithromycin initiated on admission, vancomycin added later due to +MRSA nares -Clinically improving- afebrile, saturating well on RA, WBC 19.3 to 16.6, repeat lactate wnl -BCx, sputum culture pending -Continue current antibiotics, narrow pending culture results and sensitivities E-cigarette/vaping-associated lung injury -Pt reports significant vape use over past 2 weeks -Acute lung injury from vape products possible given CT findings -Methylprednisolone 40 mg TID initiated on admission -Will decrease to 1 mg/kg daily with 2 week prednisone taper Elevated troponin -Troponin elevated on admission with peak 140, decrease to 72 -EKG- sinus tachycardia, no acute ST changes -Likely demand ischemia from physiologic stress Reactive airway disease - Unlikely to be asthma exacerbation - Duoneb PRN DVT prophylaxis: SCDs Diet: Regular Disposition: Downgrade from telemetry to medical CODE STATUS: Full code Admission and Anticipated Discharge Date Admission Date: December 20, 2021 Supervising Physician Co-Signing Physician Notes I personally examined the patient and verified all bates points of history and exam, discussed case, and agree with decision making with Dr Gomes. Feeling better. Still hypoxic. Notes he is quit vaping. No fevers chills or sweats. Vitals noted, in general he is awake and alert pleasant no distress. HEENT normocephalic atraumatic mucous membranes moist. Breathing unlabored no accessory muscle use good effort. Skin shows no rashes no pallor or icterus. Neuro without focal deficits. Hypoxic respiratory failurediffuse infiltrates noted on CTseems more likely to be vaping induced injury than pneumoniabut really hard to discern 1 from the other given the clinical context. Continue empiric antibiotics as well as steroids, supportive care, serial exams, time. Otherwise as above Subjective No acute events overnight. Pt feels much better compared to admission. Still endorsing some productive cough- mostly yellow-colored phlegm. No further hemoptysis. Denies chest pain or dyspnea. Was eating without difficulty. Review of Systems Review of Systems: Per subjective Physical Exam Physical Exam: General: well-appearing, no acute distress HEENT: moist mucous membranes CV: RRR, normal S1 and S2, no murmurs Resp: CTAB, unlabored respirations, no crackles or wheezes Abd: soft, nontender, nondistended Results & Data Results & Data ([facility]) Vital Signs (Past 12 Hours) Vital Signs Temp Pulse Pulse Resp BP BP Pulse Ox 12/21/21 06:57 36.7 C 69 16 105/71 99 12/21/21 02:58 36.5 C 85 16 109/75 93 12/20/21 23:56 98 H 12/20/21 23:00 36.8 C 93 H 16 122/79 95 O2 Del Method O2 Flow Rate 12/21/21 06:57 Nasal Cannula 4 12/21/21 02:58 Room Air 12/20/21 23:56 12/20/21 23:00 Room Air Resident Activity Tracking Resident Involvement: Resident Care Provided Care Provided: Adult Hospital Medicine
[2021-12-21] MEDS: methylPREDNISolone 40 MG in SYRINGE 0 ML IV SCH ×3 (09:41→21:21)
[2021-12-21] MEDS: AZITHROMYCIN 250 MG in DEXTROSE 5% 250 ML IV SCH (09:46)
[2021-12-21] MEDS: cefTRIAXone SODIUM 2,000 MG in DEXTROSE 5% 50 ML IV SCH (12:01)
[2021-12-21] MEDS ORDERED: cefTRIAXone SODIUM 2,000 MG in DEXTROSE 5% 50 ML IV SCH (15:00)
--- NOTE | 2021-12-21 16:04 | Pharmacy Report ---
Pharmacy PK ABX Note - Date of Service December 21, 2021 - Assessment and Plan Assessment 31 year old M receiving ceftriaxone/azithromycin/vancomycin for treatment of pneumonia. Pertinent microbiologic data includes: Positive MRSA nasal swab, sputum culture growing light normal braydon (prelim), blood cultures currently negative Plan Vancomycin * Loading dose: 2000 mg IV x 1 * Maintenance dose: 1500 mg IV every 12 hours * Regimen is predicted to achieve target AUC/CRISTHIAN of 400-600 mg/L.hr * Trough level ordered for: 12/23/21 @ 0530 Pharmacy will continue to follow and will adjust dose/frequency as necessary. Thank you. Pharmacy has transitioned to AUC monitoring for vancomycin. AUC/CRISTHIAN is the preferred PK/PD target and is associated with decreased risk of nephrotoxicity compared to traditional trough targets.
[2021-12-21] MEDS: VANCOMYCIN HCL 1,500 MG in SODIUM CHLORIDE 0.9% 500 ML IV SCH (18:08)
--- NOTE | 2021-12-21 18:53 | Billing Data ---
Date of Service December 21, 2021 Coding Level of Care Code 60685 Subseq Hosp Care Lvl 3
--- NOTE | 2021-12-21 18:54 | Billing Data ---
Date of Service December 21, 2021 Coding Level of Care Code 82159 Subseq Hosp Care Lvl 3
[2021-12-22] MEDS: VANCOMYCIN HCL 1,500 MG in SODIUM CHLORIDE 0.9% 500 ML IV SCH (05:54)
[2021-12-22 08:19] LABS: Basophils # (auto) 0.02 K/uL (0-0.2); Basophils % (auto) 0.1 %; Hematocrit (blood only) 38.6 % (40.1-51.0); Hemoglobin 13.6 g/dl (14.0-18.0); Immature Granulocytes # (auto) 0.11 K/uL (0.00-0.02); Immature Granulocytes % (auto) 0.6 %; Lymphocytes # (auto) 1.03 K/uL (1.2-3.4); Lymphocytes % (auto) 5.4 %; Mean Corpuscular Hemoglobin 31.8 pg (25.0-34.0); Mean Corpuscular Hgb Conc 35.2 g/dL (32.0-36.0); Mean Corpuscular Volume 90.2 fL (80.0-100.0); Mean Platelet Volume 9.1 fL (9.4-12.4); Monocytes # (auto) 0.97 K/uL (0.24-0.82); Monocytes % (auto) 5.1 %; Neutrophils # (auto) 16.82 K/uL (1.4-6.5); Neutrophils % (auto) 88.8 %; Platelet Count 256 K/uL (130-400); RDW Coefficient of Variation 11.5 % (11.5-14.5); RDW Standard Deviation 37.5 fL (36.4-46.3); Red Blood Count 4.28 M/uL (4.63-6.08); White Blood Count 18.95 K/ul (4.8-10.8)
[2021-12-22] MEDS: methylPREDNISolone 40 MG in SYRINGE 0 ML IV SCH (08:33)
[2021-12-22] MEDS: AZITHROMYCIN 250 MG in DEXTROSE 5% 250 ML IV SCH (08:38)
[2021-12-22 08:46] LABS: BUN Creatinine Ratio 17.5 (10-20); Calcium 9.2 mg/dl (8.5-10.1); Creatinine Clr Calc Pharmacy 160.6 ml/min; Est GFR (African American) 139.9 ml/min; Est GFR (Non-African American) 120.7 ml/min; Potassium 4.1 mmol/L (3.5-5.1)
[2021-12-22] MEDS: cefTRIAXone SODIUM 2,000 MG in DEXTROSE 5% 50 ML IV SCH (11:40)
--- NOTE | 2021-12-22 11:51 | Discharge Summary ---
Date of Service December 22, 2021 Admission HPI Per Admitting Provider Barrera Delgado is a 31-year-old male with a past medical history of reactive airway disease presented to the ER with shortness of breath which began around 2 AM. Did not have fever/chills, did have a small amount of hemoptysis when coughing and discolored yellow sputum. Leukocytosis to 19.31 on admission, new oxygen requirement of 4 L, chest CTA shows no pulmonary emboli but diffuse alveolar opacities throughout the lungs consistent with multifocal pneumonia versus pulmonary edema/pulmonary hemorrhage Yesterday fatigued, 2am short of breath No chest pain or chest pressure No syncope or presyncope, but oes feel lightheaded and needed to sit a few times 2am-3am woke up with night sweats and felt feverish. Didnt check temperature. No nausea, diarrhea, constipation. Coughted/vomiting up a little yesterday with forceful coughing. +small amount of bright red blood. Feeling about the same now but with reduced cough compared to 2am at bedside. Feels OK laying down Peeing normally, no pain with voiding, last void 20 minutes prior. Denies heart problems Denies asthma, reports he has some airway stuff as a kid but no problems recently Did have a respiratory illness/cough a month or so ago which improved, not sure what he took for it. Levo/pred on med rec are from 2017, no recent abx or tx in last 3 weeks. Bilat crackles/rales. Medical History: Reviewed Medications: Reviewed Surgical History: Reviewed Allergies: Reviewed Social History: Quit smoking 2 weeks 1ppd prior for 5 years. EtoH rare social, no hx withdrawal Code Status: Surrogate DM would be father Joey Nieves. Full Code. Admission Exam Per Admitting Provider General: A&Ox3. NAD. Cooperative. HEENT: Atraumatic, normocephalic. Vision/hearing grossly intact Pulm: On 4 L nasal cannula. Bilateral mid/lower posterior field crackles and scattered rales. No wheezing. No respiratory distress [place]: [place] [address], -mrg. Radial pulses intact and symmetrical. Abdominal: Nontender, nondistended, soft. BS present. Extremities: Moves all extremities equally, hands and feet with intact sensation to soft touch bilaterally. [employer] strength, hip flexion, ankle dorsiflexion/plantarflexion intact and symmetrical. Principal Diagnosis Vaping associated lung injury, bacterial pneumonia Discharge Exam General: well-appearing, no acute distress HEENT: moist mucous membranes CV: RRR, normal S1 and S2, no murmurs Resp: CTAB, unlabored respirations, no crackles or wheezes Abd: soft, nontender, nondistended Discharge Data Allergies Allergy/AdvReac Type Severity Reaction Status Date / Time No Known Allergies Allergy Unverified 08/21/16 10:15 Consultations 12/20/21 14:41 ED Decision to Admit Stat Ordered Studies 12/20/21 12:07 CT angio chest PE protocol Stat Hospital Course (1) Sepsis due to pneumonia: Multifocal community-acquired pneumonia with sepsis -Septic on admission- WBC 19.3, lactate 2.2, procalcitonin 19, tachypnea + tachycardia -CTA chest- diffuse alveolar opacities of b/l lungs, differential includes multifocal PNA vs edema vs hemorrhage -Ceftriaxone/azithromycin initiated on admission, vancomycin added later due to +MRSA nares -Clinically improving- afebrile, saturating well on RA, repeat lactate wnl -BCx, sputum culture preliminary negative -Discharged on doxycycline 100 mg BID to complete 5 day course E-cigarette/vaping-associated lung injury -Pt reports significant vape use leading up to 2 weeks before admission -Acute lung injury from vape products possible given CT findings -Methylprednisolone 40 mg TID initiated on admission and given until discharge -Discharged on oral prednisone 2 week taper Elevated troponin -Troponin elevated on admission with peak 140, decrease to 72 -EKG- sinus tachycardia, no acute ST changes -Likely demand ischemia from physiologic stress Total Time Total Time Spent Total Time Spent (In Minutes): <30 Discharge Plan Discharge Items Patient Disposition: Home - Self-Care Reason For Visit: SEPSIS 2/2 MULTIFOCAL PNA, TROP ELEVATION Discharge Diagnosis: Pneumonia, vaping-induced lung injury Activity: Resume your previous activity Non-emergency contact: Primary Care Provider Call non-emergency contact if: you have any medication questions, your symptoms worsen and you have a fever Follow-up/Referrals: Deanna Mohan CRNP [Primary Care Provider] - Diet: Regular Addtl Attending Provider Instructions: You were admitted to the hospital for bloody cough. This was thought to be due to lung injury from vaping and possibly bacterial pneumonia as well. You were treated with steroids as well as IV antibiotics. A discharge summary will be sent to your primary care physician to ensure continuity of care. Please bring this discharge summary with you to your next office appointment so that your provider can review it at that time. Follow-up appointments: Make a follow-up appointment with your PCP within the next week. It is very important that you follow up with them shortly after discharge from the hospital. Medications: Your medication list has been reviewed and reconciled upon discharge to ensure accuracy and continuity of care. An updated list of all your medications is included with your hospital discharge paperwork. Please review this list closely, and make note of any changes. We sent two new medications called doxycycline and prednisone to your pharmacy. Doxycycline is an antibiotic you will take twice a day (about 12 hours apart) for 4 days to treat the remainder of your pneumonia. It can cause a rash if exposed to sunlight so we recommend you limit your sun exposure while taking the medication. You will also take prednisone, which will treat the lung injury caused by vaping. Steroids are typically weaned bit by bit until you are off them entirely. You will take prednisone 60 mg for 4 days, then 40 mg for 4 days, then 20 mg for 4 days. Because prednisone comes in 20 mg tablets, this means you will take 3 tablets for 60 mg, 2 tablets for 40 mg and 1 tablet for 20 mg. We recommend you take prednisone with food as it can cause some stomach upset as a side effect. 12/23 - 12/26- take 3 tablets in the morning 12/27 - 12/30- take 2 tablets in the morning 12/31 - 01/03- take 1 tablet in the morning Take your medications as instructed; do not skip a dose of your medicines. Make sure all of your doctors know every medicine you are taking (including [id number] medicines, vitamins, and supplements). Call your primary care provider before taking any new medicines (including ayvr-oyb-gahvmua medicines, vitamins, and supplements), because some of these may interact with your current medications, or may make your symptoms worse. Tell your primary care provider if you cannot afford your medications. CONTACT YOUR PRIMARY CARE PROVIDER if you experience any of the following: Fever Cough Shortness of breath Fatigue Difficulty following your treatment plan, or difficulty taking medications CALL 911 OR GO TO THE EMERGENCY DEPARTMENT if you experience any of the following: Sudden, severe abdominal pain or nausea/vomiting Severe chest pain, or chest pain that radiates (moves) to your jaw or arm Sudden, severe shortness of breath or difficulty breathing Thank you for allowing us to participate in your care. Pending Studies at Discharge: No Stand-Alone Forms: My [facility], Smoking Cessation Medications and DC Order Prescriptions: New doxycycline hyclate 100 mg capsule 100 mg PO BID 4 Days Qty: 8 0RF prednisone 20 mg tablet 20 mg PO DAILY Qty: 24 0RF Discharge Orders: Discharge Order (Routine); Ordered 12/22/21 Ordered By: Flakito Elaine/Other Patient Handouts: What Is Pneumonia? Admission Data Admit Date/Time: 12/20/21 15:02 Attending Provider: Connor Gleason Admit Provider: Del Hanson Primary Care Provider: Deanna Mohan Other Providers: Del Hanson Other Interventions: Discharge Summary Assessment (RN) Last Done: 12/22/21 11:56 Supervising Physician Co-Signing Physician Notes I personally examined the patient and verified all bates points of history and exam, discussed case, and agree with decision making with Dr Gomes. Feeling better. Off oxygen, breathing better. Wants to go home. Vitals noted, in general he is awake and alert pleasant no distress. HEENT normocephalic atraumatic mucous membranes moist. Breathing unlabored no accessory muscle use good effort. Lungs clear without rales rhonchi or wheezes good effort. Skin shows no rashes no pallor or icterus. Neuro without focal deficits. Hypoxic respiratory failurediffuse infiltrates noted on CTseems more likely to be vaping induced injury than pneumoniabut really hard to discern 1 from the other given the clinical context. Safe for home, tapering steroids, complete course of antibiotics with doxycycline Otherwise as above Resident Activity Tracking Resident Involvement: Resident Care Provided Care Provided: Adult Hospital Medicine
--- NOTE | 2021-12-22 19:38 | Billing Data ---
Date of Service December 22, 2021 Coding Level of Care Code D/C DAY MANAGEMENT <30 MINS
--- NOTE | 2021-12-22 19:38 | Billing Data ---
Date of Service December 22, 2021 Coding Level of Care Code D/C DAY MANAGEMENT <30 MINS
[2021-12-23] MEDS ORDERED: VANCOMYCIN LEVEL ONE (05:30)
== END 2021-12-22 13:06 | disposition home or self-care (01) | DRG 871 ==
LOC: ED 11:38 → 2S 15:02 → SUATTDRO 15:02 → 2S 16:28 → 3W 12-21 18:33